=== PATIENT | male | born 1970 | race Caucasian/White ===

== ENCOUNTER 2020-11-12 14:12 | Outpatient (CLI) | payer OTHER, SELFPAY ==
--- NOTE | ~2020-11-12 | XR_ITS ---
XR abdomen/kub 1V 11/12/2020 14:38 Indication: Left flank pain for 3 days. History of stones. Procedure: KUB Comparison: 12/29/2017 Findings: There are bilateral renal stones. Bowel gas pattern is nonobstructive. No calcifications ar e identified overlying the expected course of the ureters or bladder. Lung bases unremarkable. Impression: 1: Bilateral nephrolithiasis measuring 3 mm or less. Reviewed, dictated and finalized at location A. Impression: 1: Bilateral nephrolithiasis measuring 3 mm or less.
== END 2020-11-12 14:13 | disposition home or self-care (01) ==
LOC: ANHIMG 14:18
PROVIDERS: PCP Nurse Practitioner Family; Visit Provider Nurse Practitioner Adult Health
DX: R10.9 Unspecified abdominal pain (principal); N20.0 Calculus of kidney
CPT/HCPCS: 74018

== ENCOUNTER 2022-08-17 08:14 | Outpatient (CLI) | payer OTHER, SELFPAY ==
--- NOTE | ~2022-08-17 | XR_ITS ---
Supine and upright views of the abdomen Clinical history: Left flank pain COMPARISON: 11/12/2020 Findings: Bowel gas pattern is nonspecific. No evidence for obstruction or free air. Small bilateral renal stones are present, measuring up to 3 mm in maximum diameter. Osseous structures are intact. Impression: Small bilateral renal stones, as detailed above. Reviewed, dictated and finalized at location . Impression: Small bilateral renal stones, as detailed above.
== END 2022-08-17 08:15 | disposition home or self-care (01) ==
PROVIDERS: PCP Nurse Practitioner Family; Visit Provider Nurse Practitioner Adult Health
DX: R10.9 Unspecified abdominal pain (principal); N20.0 Calculus of kidney
CPT/HCPCS: 74018

== ENCOUNTER → 2023-01-30 09:16 | Outpatient (CLI) | payer OTHER, SELFPAY ==
--- NOTE | ~2023-01-30 | US_ITS ---
US scrotum doppler INDICATION: Epididymitis TECHNIQUE: Testicular sonogram utilizing grayscale and color Doppler FINDINGS: The testes are normal in size and appearance. No focal lesions are seen. The right testes measures 3.9 x 2.7 x 4.1 cm centimeters, and the left testis measures 4.1 x 2.6 x 3.1 cm cm. There is normal vascular flow to both testes. The right and left epididymides appear normal. There is no varicocele or hydrocele. IMPRESSION: 1. NORMAL TESTICULAR ULTRASOUND. Reviewed, dictated and finalized at location B.
--- NOTE | ~2023-01-30 | CT_ITS ---
EXAMINATION: CT pelvis w con DATE: 01/30/2023 09:57 INDICATION: Left groin pain TECHNIQUE: High resolution computed tomography (CT) of the pelvis was performed with 100 mL Omnipaque -350 intravenous contrast. Additional sagittal and coronal reconstructions were performed. Automated exposure control and iterative reconstruction technique were employed. The dose-length product was 71 7.06 mGy-cm. COMPARISON: None FINDINGS: Bone alignment is normal. No fracture or suspected osteonecrosis. Mild lower lumbar spondylosis. Mild osteoarthritis at the bilateral hip and sacroiliac joints. No hip joint effusion. Small fat-containi ng indirect right inguinal hernia. There are few diverticula along the distal descending colon withou t adjacent comparison to suggest diverticular colitis. Remainder the visualized bowels including a re trocecal appendix are normal. Bladder the prostate and seminal vesicles are unremarkable. No free flu id in the pelvis. No pathologically enlarged pelvic or inguinal lymphadenopathy. IMPRESSION: 1. Mild lumbar spondylosis and mild osteoarthritis in the bilateral hip and sacroiliac joints. 2. Small fat-containing right inguinal hernia. Reviewed, dictated and finalized at location A. IMPRESSION: 1. Mild lumbar spondylosis and mild osteoarthritis in the bilateral hip and sac roiliac joints. 2. Small fat-containing right inguinal hernia.
[2023-01-30 09:48] LABS: Estimated Glomerular Filt Rate > 60
== END ==
PROVIDERS: PCP Nurse Practitioner Adult Health; Visit Provider Nurse Practitioner Adult Health
DX: R10.32 Left lower quadrant pain (principal); N45.1 Epididymitis; K40.90 Unilateral inguinal hernia, without obstruction or gangrene, not specified as recurrent; M47.896 Other spondylosis, lumbar region
CPT/HCPCS: 72193; 76870; 93976; Q9967

== ENCOUNTER 2025-02-08 07:53 | Outpatient (CLI) | payer OTHER, SELFPAY ==
--- NOTE | 2025-02-08 08:27 | ECG_ITS ---
Test Date: 2025-02-08 08:40:44 Measurements Intervals Raymond Rate: 77 P: 70 MD: 166 QRS: 60 QRSD: 110 T: 32 QT: 361 QTc: 409 Interpretive Statements SINUS RHYTHM NONSPECIFIC ST-T WAVE ABNORMALITY- INFERIOR LEADS BORDERLINE ECG No previous ECG available for comparison Electronically Signed On 02-08-2025 09:55:21 CDT by Pa Martin D.O.
[2025-02-08 09:37] LABS: INR 1.0; Partial Thromboplastin Time 25.9 Seconds (22.3-36.8); Prothrombin Time 13.6 Seconds (11.1-14.7)
== END 2025-02-08 07:54 | disposition home or self-care (01) ==
LOC: ANHLAB 07:54
PROVIDERS: PCP Nurse Practitioner Family; Visit Provider Urology
DX: R94.31 Abnormal electrocardiogram [ECG] [EKG] (principal); N20.0 Calculus of kidney
CPT/HCPCS: 36415; 85610; 85730; 87086; 93005

== ENCOUNTER 2025-02-14 01:18 | Day surgery (SDC) | payer OTHER, SELFPAY ==
--- NOTE | 2025-02-06 16:37 | P.HP_ITS ---
History of Present Illness History of Present Illness Consent: Risks, benefits, and alternatives have been discussed and questions answered. Patient agrees to proceed with procedure. Chief complaint: Rt renal stone Narrative: Dontrell Vaughn is a 54 year old male who is seen by Dr. Smith in our advanced placement practitioners for ED and hypogonadism. He is known to have bilateral stones, more so on the right. After consideration for some time he is now electing for right ESWL. He is aware the risk including, not limited to, adverse cardiopulmonary events, hematuria, perinephric hematoma and need for additional procedures to clear renal stones Review of Systems Cardiovascular: Cardiovascular: Denies chest pain, Denies lightheadedness, Denies palpitations and Denies dyspnea Respiratory: Respiratory: Denies dyspnea Gastrointestinal: Gastrointestinal: Denies diarrhea, Denies nausea and Denies vomiting Genitourinary: Genitourinary: Denies hematuria and Denies dysuria Endocrine: Endocrine: Denies palpitations Meds Home Medications and Allergies Allergies Allergy/AdvReac Type Severity Reaction Status Date / Time No Known Allergies Allergy Unverified 05/06/15 12:35 Exam Const: General: no acute distress Resp: Effort & Inspection: normal respiratory effort GI: Inspection: non-distended GI Palp: No abdominal tenderness and No Guarding due to palpation present (GI) Auscultation: normal bowel sounds Assessment and Plan Assessment and plan (1) Right renal stone: Code(s): N20.0 - Calculus of kidney Status: Acute Assessment and Plan: * Right ESWL
[2025-02-07 09:03] VITALS: BMI 30.6
--- NOTE | 2025-02-07 09:12 | PC.NURSE ---
[facility] has started construction of its new state of the art ER which will open Spring 2026. With this, we anticipate parking may be a challenge for some our surgical patients and families. Parking spaces are limited but are available for all Surgical, obstetrics, and ER patients sharing this lot. If you arrive and find you are having a hard time finding a parking space, please note that we understand the challenges, please drive around the hospital and park near Hospital Entrance 1. When you enter this entrance, you can ask a volunteer to direct or take you back to the surgical waiting area to check in. We appreciate everyone?s understanding of these expected challenges while we build for your future. Report to the Outpatient Waiting Room, entrance under the green pavilion located off [address], at time _0900_ on date _[id number]_. Planned Procedure Time: _1100_.? Time changes happen often and if your time is changed the preop area will call you the afternoon before. - You and your visitor will be asked to self-screen and do not enter if you have any COVID symptoms. Please call surgeon if you need to reschedule. - A mask is optional within the hospital at this time. Patients may have clear liquids (water, carbonated beverages, clear teas, apple juice) until 3 hours prior to surgery with a maximum of 20 ounces. - No food from midnight until time of surgery and no smoking, or chewing tobacco (or any form of nicotine). No chewing gum, candy or mints. Take only the following medications with a SIP of water on the morning of surgery: ___Amlodipine, Metoprolol____ DO NOT STOP ANY OF YOUR OTHER PRESCRIPTION MEDICATIONS PRIOR TO SURGERY EXCEPT THE FOLLOWING Hold all vitamins and supplements for 3 days per anesthesiologist. Medications to discontinue per physician Date to take last iaet___[phone]____ Please no make-up, nail nigerien, hairspray, perfume, deodorant, or body powder the day of surgery.? No jewelry (including any body piercings) or valuables the day of surgery, leave them at home.? Please take a shower or bath the night before, or the morning of, surgery with an antibacterial soap.? Wear comfortable, loose fitting clothing.? - Jewelry must be removed prior to entering the operating room.? Rings and piercings that are not removed may be cut off. - The hospital will not accept responsibility for valuables.? - Please leave all valuables, including medications, at home the day of surgery. If you are going home after surgery, a licensed tow truck driver must drive you home.? - NO public transportation without another adult if you receive anesthesia. - We recommend that an adult stay with you for 24 hours following discharge. - We also recommend that you do not drive, make important decision, drink alcoholic beverages, or take any drugs that were not prescribed by your health care provider for at least 24 hours after your discharge time. Follow any additional instructions given to you from your surgeon. Telephone instructions given to __Fantasmay__and asked if any additional questions and then verbalized understanding. Patient advised to call surgeon office or pre surgery nurse liaison [phone] if any additional questions.
[2025-02-14] VITALS (8 sets, daily range): BP systolic 86–146; BP diastolic 41–89; PULSE 67–89; RESP 12–20; TEMP 36.3–36.7; O2SAT 95–99; BMI 31.3
--- NOTE | ~2025-02-14 | XR_ITS ---
EXAMINATION: XR abdomen/kub 1V DATE: 02/14/2025 09:22 INDICATION: Pre Litho Right side stone TECHNIQUE: A supine view of the abdomen on 2 radiographs was obtained. COMPARISON: 08/17/2022 FINDINGS: Large amount of stool moderate amount of air in nondilated large bowel. Small amount of air in nondilated small bowel. Small bilateral renal stones. Stable 4 mm calcification in the right hemipelvis. IMPRESSION: 1. Small bilateral renal stones. 2. Nonspecific abdomen with a large amount of stool. Reviewed, dictated and finalized at location Q.
[2025-02-14] MEDS: LACTATED RINGERS 1,000 ML 30 ML IV CONT ×2 (09:53→11:52)
--- NOTE | 2025-02-14 09:55 | WPDANESEPPF ---
Anes - Initial Pre Proc Eval Procedure: Operation Date: 02/14/25 11:00 Proposed Procedures p Right Renal Extracorporeal Shock Wave Lithotripsy - Jose Jules MD Date/Time: 02/14/25 09:55 Surgeon: Jose Jules MD Pre Op Diagnosis: Rt renal stone Patient Data Age: 54 Gender: M Height: 1.75 m Weight: 96.2 kg Last Vital Signs Temp 36.7 C 02/14/25 09:50 Pulse 67 02/14/25 09:50 BP 146/89 H 02/14/25 09:50 Pulse Ox 99 02/14/25 09:50 O2 Del Method Room Air 02/14/25 09:50 Allergies Allergy/AdvReac Type Severity Reaction Status Date / Time ciprofloxacin (From Cipro) Allergy Intermediate Hives Verified 02/14/25 09:49 hydralazine Allergy Intermediate Hives Verified 02/14/25 09:49 Home Medications ?Medication ?Instructions ?Recorded ?Confirmed ?Type amlodipine 10 mg tablet 10 mg PO DAILY 02/07/25 02/14/25 History atorvastatin 20 mg tablet 20 mg PO HS 02/07/25 02/14/25 History metoprolol succinate 25 mg 25 mg PO DAILY 02/07/25 02/14/25 History tablet,extended release 24 hr multivitamin 1 tablet PO DAILY 02/07/25 02/14/25 History omeprazole 40 mg capsule,delayed 40 mg PO DAILY 02/07/25 02/14/25 History release valsartan 80 mg tablet 80 mg PO DAILY 02/07/25 02/14/25 History Patient hx anesthesia problems: none Family hx anesthesia problems: none Results Review: All pre-operative results and documents have been reviewed as part of the pre-operative evaluation. [facility] Past Medical History Medical History (Updated 02/13/25 @ 15:36 by William Do DO) PONV (postoperative nausea and vomiting) GERD (gastroesophageal reflux disease) CHRISTIAN (obstructive sleep apnea) Hyperlipidemia Hypertension Social History Social History Smoking status: Never smoker Living arrangements: with family Spiritual care concerns: No Anes - Eval Final PreProcedure Day of Procedure 02/14/25 09:55 Patient weight: obese Heart: regular rate and rhythm Lungs: clear to auscultation Airway: Mallampati scale class II Neurological: alert and oriented Last oral intake: >/= 8 hours ASA classification: III Emergent: no Anesthetic plan: proceed Anesthesia type and monitoring: general LMA and standard monitoring Results Review: All pre-operative results and documents have been reviewed as part of the pre-operative evaluation. Informed Consent: The patient's anesthetic plan and its attendant risks and benefits were discussed with the patient/family/POA. Questions were solicited and answers provided to the satisfaction of the patient/family/POA.
[2025-02-14] MEDS: SCOPOLAMINE 1 MG PATCH 1 PATCH TRANSDERM (10:08)
--- NOTE | 2025-02-14 10:50 | WPDHPUPDATE1 ---
History and Physical Update Update Date/Time: 02/14/25 10:50 History and Physical has been reviewed, including an updated exam of the patient. There are NO changes in the patient's condition. Risks, benefits, and alternatives have been discussed and questions answered. Patient agrees to proceed with procedure.
--- NOTE | 2025-02-14 11:15 | W.PM.PROC2 ---
Procedure Note - Detailed Date of Procedure 02/14/25 Pre-op Diagnosis Rt renal stones Post-op Diagnosis Same Procedure Performed Right ESWL Surgeon Jose Jules MD Anesthesia General Description of Procedure The patient was brought to the operative suite where he was placed in the supine position on the Dornier lithotripsy table. The focal point of the lithotripter was placed first at a 5mm stone in his right upper pole where 1250 shocks were delivered at a power setting of 1-4. The additional 1250 shock were split between 2 small stones in lower aspects of right kidney. calculus. A total of 2500 shocks were delivered at a power setting of 1-44. There appeared to be good fragmentation of the stones. The patient tolerated the procedure well and was taken to the recovery room in good condition. Drains Yes Packing No Pathology None sent Complications No immediate complications Condition Stable Disposition PACU
[2025-02-14] MEDS: oxyCODONE HCL (*CRX) 5 MG TAB IR PO (12:47)
== END 2025-02-14 13:25 | disposition home or self-care (01) ==
PROVIDERS: PCP Nurse Practitioner Family; Visit Provider Urology
PROC: (CPT 50590; principal; 2025-02-14 11:00)
DX: N20.0 Calculus of kidney (principal); E78.5 Hyperlipidemia, unspecified; I10 Essential (primary) hypertension; K21.9 Gastro-esophageal reflux disease without esophagitis; G47.33 Obstructive sleep apnea (adult) (pediatric); E66.9 Obesity, unspecified; Z68.31 Body mass index [BMI] 31.0-31.9, adult
CPT/HCPCS: 50590; 74018; J0690; A9270; J1100; J2250; J2405; J2704; J3010; J7120

== ENCOUNTER 2025-03-03 12:35 | Outpatient (CLI) | payer OTHER, SELFPAY ==
--- NOTE | ~2025-03-03 | XR_ITS ---
EXAMINATION: XR abdomen/kub 1V DATE: 03/03/2025 12:48 INDICATION: Calculus of kidney TECHNIQUE: A supine view of the abdomen on 2 radiographs was obtained. COMPARISON: 02/14/2025 FINDINGS: Large amount of stool in nondilated large bowel. Lung bases appear clear. There are a few probable small right renal stones, however, evaluation is limited due to overlying bowel gas and stool. Stable 3 mm calcification in the right hemipelvis. IMPRESSION: 1. Nonspecific abdomen with a large amount of stool. 2. Stable 3 mm calcification in the right hemipelvis. 3. There are a few probable small right renal stones, however, evaluation is limited due to overlying bowel gas and stool. If symptoms persist or worsen, consider a short-term follow-up study or additional imaging for further assessment. Reviewed, dictated and finalized at location Q. IMPRESSION: 1. Nonspecific abdomen with a large amount of stool. 2. Stable 3 mm calcification in the right hemipelvis. 3. There are a few probable small right renal stones, however, evaluation is li mited due to overlying bowel gas and stool. If symptoms persist or worsen, consider a short-term follow-up study or additio nal imaging for further assessment.
--- OUTSIDE RECORDS SUMMARY | 2025-03-03 13:52 | XMS_ITS | Encounter Summary ---
Author Organization [facility] Address [facility] [place] [address] Care Team Providers Care Roofing Subcontractor Name Role Phone Morelia Oh AMARILIS Primary Care Provider Clinton Palomino MD Unavailable [phone] Encounter Details Date Type Department Care Team (Late st Contact Info) Description 03/03/2025 Editorially Message Enc [facility] THREE [facility], [address] [place] [address] Cheryl Cabrera PA 3 [facility], [address] [place] [address] Follow from 02/24 appt Social History Tobacco Use Types Packs/Day Years Used Date Smoking Tobacco: Never Passive Smoke Exposure: Past Smokeless Tobacco: Never Comments:na Alcohol Use Standard Drinks/Week Comments Never 0 (1 standard drink = 0.6 oz pur e alcohol) PHQ-2 Answer Date Recorded Patient Health Questionnaire-2 Score 0 01/21/2025 Sex and Gender Information Value Date Recorded Sex Assigned at Male 12/19/2024 5:50 AM CDT Legal Sex Male 10:41 PM CDT Gender Identity Not on file Sexual Orientation Not on file 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 [place], [place] [id number] documented as of this encounter Visit Diagnoses Not on filedocumented in this encounter Additional Health Concerns Assessment Noted Time PHQ-9 Depression Total Score: 1 01/22/20 25 8:37 AM CDT documented as of this encounter Care Teams Roofing Subcontractor Relationship Specialty Start Date End Date Morelia Oh NP PCP - General 10/07/15 Clinton Palomino MD Three [facility] [address] [place], [place] [id number] Fabiola Mat Packer INTERVENTIONAL CARDIOLOGY 05/30/19 documented as of this encounter
--- OUTSIDE RECORDS SUMMARY | 2025-03-03 13:52 | XMS_ITS | Clinical Summary ---
Author Organization [facility] Care Team Providers Care Metal Milling Machine Operator Name Role Phone Unavailable Primary Care Provider Unavailabl e Social History Tobacco Use Types Packs/Day Years Used Date Smoking Tobacco: Never Assessed Sex and Gender Information Value Date Recorded Sex Assigned at Not on file Legal Sex Male 8:18 AM INTEGRATION ASSISTANT Gender Identity Not on file Sexual Orientation Not on file Plan of Treatment Health Maintenance Due Date Last Done Comments Hepatitis C Virus (HCV) Screening 1972 TdaP Immunization 1972 Hepatitis B Immunization (1 of 3 - 19+ 3-dose series) 1991 Cologuard 2017 Colonoscopy 2017 Colorectal Cancer Screening 2017 Immunochemical Fecal Occult Blood 2017 Pneumococcal Immunization (5 0+ years) (1 of 1 - PCV) 2022 Zoster Immunization (1 of 2) 2022 Influenza Immunization (#1) 2025 SARS-COV-2 Immunization ( - 2023-25 season) 2025 Respiratory Syncytial Virus (RSV) Immunization (Adult) (1 - 1-dose 75+ series) 2047 Human Papillomavirus (HPV) Immunization Aged Out No longer eligible b ased on patient's age to complete this topic Meningococcal Immunization (ACWY) Aged Out No longer eligible based on patient's age to complete this topic Rotavirus Immunization Aged Out No lo nger eligible based on patient's age to complete this topic
--- OUTSIDE RECORDS SUMMARY | 2025-03-03 13:52 | XMS_ITS | Encounter Summary ---
Author Organization [facility] Address [facility] [place] [address] Care Team Providers Care Experimental Outboard Motors Mechanic Name Role Phone Morelia Oh ANALYTICAL RESEARCH CHEMIST Primary Care Provider [phone] Clinton Palomino MD Unavailable [phone] Encounter Details Date Type Department Care Team (Late st Contact Info) Description 03/11/2020 ACS Gl[employer]alt Message Enc [facility] Family [facility] Medicine - [place] [address] [place] [address] Morelia Oh, ANALYTICAL RESEARCH CHEMIST [address] [place] [address] Medication Questions Social History Tobacco Use Types Packs/Day Years Used Date Smoking Tobacco: Never Smokeless Tobacco: Never Alcohol Use Standard Drinks/Week Comments No 0 (1 standard drink = 0.6 oz pur e alcohol) PHQ-2 Answer Date Recorded PHQ-2 Score - If the patient scores above 3, please move on to questions 3-9 0 03/04/2020 Sex and Gender Information Value Date Recorded Sex Assigned at Male 12/19/2024 5:50 AM CDT Legal Sex Male 10:41 PM CDT Gender Identity Not on file Sexual Orientation Not on file 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 No / Unsure 03/04/2020 10:29 AM CDT documented as of this encounter Progress Notes * Tiffani Hagen MA - 03/12/2020 7:35 AM CST Please advise GER BUSINESS INFORMATION documented in this encounter Plan of Treatment Upcoming Encounters Date Type Department Care Team (Late st Contact Info) Description 03/02/2026 9:30 AM CDT Office [facility] [address] [place], [place] [id number] Clinton [facility] [address] [place], [place] [id number] documented as of this encounter Visit Diagnoses Not on filedocumented in this encounter Additional Health Concerns Assessment Noted Time PHQ-9 Depression Total Score: 1 03/04/20 20 10:37 AM CDT documented as of this encounter Care Teams Experimental Outboard Motors Mechanic Relationship Specialty Start Date End Date Morelia Oh NP PCP - General 10/07/15 Clinton Palomino MD Three [facility]. [address] [place] [address] [place] Retail Aide INTERVENTIONAL CARDIOLOGY 05/30/19 documented as of this encounter
--- OUTSIDE RECORDS SUMMARY | 2025-03-03 13:52 | XMS_ITS | Encounter Summary ---
Author Organization [facility] Address [facility] [place] [address] Care Team Providers Care Sulfonator Operator Name Role Phone Morelia Oh AMARILIS Primary Care Provider [phone] Clinton Palomino MD Unavailable [phone] Encounter Details Date Type Department Care Team (Late st Contact Info) Description 03/03/2025 Trendlr Message Enc [facility] [address] [place] [address] [facility], [facility] Provider Social History Tobacco Use Types Packs/Day Years [...] 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 [address] [place], [place] [id number] documented as of this encounter Visit Diagnoses Not on filedocumented in this encounter Additional Health Concerns Assessment Noted Time PHQ-9 Depression Total Score: 1 01/22/20 25 8:37 AM CDT documented as of this encounter Care Teams Sulfonator Operator Relationship Specialty Start Date End Date Morelia Oh CHART CHANGER PCP - General 10/07/15 Clinton Palomino MD [facility]. [facility] [address] [place] [address] [place] Ward Clerk INTERVENTIONAL CARDIOLOGY 05/30/19 documented as of this encounter
--- OUTSIDE RECORDS SUMMARY | 2025-03-03 13:52 | XMS_ITS | Encounter Summary ---
Author Organization [facility] Address [facility] [place] [address] Care Team Providers Care Bus Greaser Name Role Phone Morelia Oh NP Primary Care Provider [phone] Clinton Palomino MD Unavailable [phone] Encounter Details Date Type Department Care Team (Latest Contact Info) Description 01/23/2025 Results Follow-Up [facility] Family and Sports Medicine - [place] [address] [place] [address] Morelia Oh ELECTROLYTIC ETCHER [address] [place] [address] CBC W/DIFF AUTOMATED, COMPREHENSIVE METABOLIC PANEL, LIPID PANEL, Additional followed-up results: 3 Social History Tobacco Use Types Packs/Day Years [...] 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 documented in this encounter Plan of Treatment Upcoming Encounters Date Type Department Care Team (Late st Contact Info) Description 03/02/2026 9:30 AM CDT Office Visit [facility] THREE [facility], [address] [place] [address] Clinton Palomino MD Three [facility]. [address] [place], [place] [id number] documented as of this encounter Visit Diagnoses Not on filedocumented in this encounter Additional Health Concerns Assessment Noted Time PHQ-9 Depression Total Score: 1 01/22/20 25 8:37 AM CDT documented as of this encounter Care Teams Bus Greaser Relationship Specialty Start Date End Date Morelia Oh NP PCP - General 10/07/15 Clinton Palomino MD Three [facility]. [address] [place], [place] [id number] [place] Newspaper Illustrator INTERVENTIONAL CARDIOLOGY 05/30/19 documented as of this encounter
--- OUTSIDE RECORDS SUMMARY | 2025-03-03 13:52 | XMS_ITS | Encounter Summary ---
Author Organization [facility] Address [facility] [place] [address] Care Team Providers Care Cottrell Operator Name Role Phone Morelia Oh SCREEN MAKING TECHNICIAN Primary Care Provider [phone] Clinton Palomino MD Unavailable [phone] Encounter Details Date Type Department Care Team (Latest Contact Info) Description 12/29/2024 MyChart Message Enc [facility] Family and Sports Medicine - [place] [address] [place] [address] Morelia Oh, SCREEN MAKING TECHNICIAN [address] [place] [address] Surgery recommendation Social History Tobacco Use Types Packs/Day Years Used Date Smoking Tobacco: Never Passive Smoke Exposure: Past Smokeless Tobacco: Never Comments:na Alcohol Use Standard Drinks/Week Comments No 0 (1 standard drink = 0.6 oz pur e alcohol) PHQ-2 Answer Date Recorded Patient Health Questionnaire-2 Score 0 03/26/2024 Sex and Gender Information Value Date Recorded Sex Assigned at Male 12/19/2024 5:50 AM CDT Legal Sex Male 10:41 PM CDT Gender Identity Not on file Sexual Orientation Not on file 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 [address] [place], [place] [address] documented as of this encounter Visit Diagnoses Not on filedocumented in this encounter Additional Health Concerns Assessment Noted Time PHQ-9 Depression Total Score: 2 03/26/20 24 11:47 AM COSMETICS PRESSER documented as of this encounter Care Teams Cottrell Operator Relationship Specialty Start Date End Date Morelia Oh NP PCP - General 10/07/15 Clinton Palomino MD Three [facility]. [address] [place], [place] [address] [place] Ticket Attendant INTERVENTIONAL CARDIOLOGY 05/30/19 documented as of this encounter
--- OUTSIDE RECORDS SUMMARY | 2025-03-03 13:52 | XMS_ITS | Encounter Summary ---
Author Organization [facility] Address [facility] [place] [address] Care Team Providers Care Navigation Teacher Name Role Phone Morelia Oh VEGETABLE HARVEST WORKER Primary Care Provider [phone] Clinton Palomino MD Unavailable [phone] Encounter Details Date Type Department Care Team (Late Contact Info) Description 01/15/2025 MyChart Message Enc [facility] Medical [facility] Family and Sports Medicine - [place] [address] [place] [address] Morelia Oh, VEGETABLE HARVEST WORKER [address] [place] [address] Bloodwork Social History Tobacco Use Types Packs/Day Years [...] 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 [address] [place], [place] [id number] documented as of this encounter Visit Diagnoses Not on filedocumented in this encounter Additional Health Concerns Assessment Noted Time PHQ-9 Depression Total Score: 2 03/26/20 24 11:47 AM CONDENSER WINDER documented as of this encounter Care Teams Navigation Teacher Relationship Specialty Start Date End Date Morelia Oh NP PCP - General 10/07/15 Clinton Palomino MD Three [facility] [place] [facility]. [address] [place], [place] [address] [place] Chlorination Operator INTERVENTIONAL CARDIOLOGY 05/30/19 documented as of this encounter
--- OUTSIDE RECORDS SUMMARY | 2025-03-03 13:52 | XMS_ITS | Encounter Summary ---
Author Organization [facility] Address [facility] [place] [address] Care Team Providers Care Clinical Sciences Professor Name Role Phone Morelia Oh UX INFORMATION ARCHITECT Primary Care Provider [phone] Clinton Palomino MD Unavailable [phone] Encounter Details Date Type Department Care Team (Late Contact Info) Description 09/08/2020 MyChart Message Enc [facility] Medical [facility] Family and Sports Medicine - [place] [address] [place] [address] Morelia Oh, UX INFORMATION ARCHITECT [address] [place] [address] RE: Follow Up/Update Social History Tobacco Use Types Packs/Day Years [...] 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 No / Unsure 08/17/2020 7:49 AM CDT documented as of this encounter Plan of Treatment Upcoming Encounters Date Type Department Care Team (Late st Contact Info) Description 03/02/2026 9:30 AM CDT Office Visit [facility] THREE [facility], [address] [place], [place] [phone] Clinton Palomino MD Three [facility]. [address] [place], [place] [id number] documented as of this encounter Visit Diagnoses Not on filedocumented in this encounter Additional Health Concerns Assessment Noted Time PHQ-9 Depression Total Score: 1 03/04/20 20 10:37 AM CDT documented as of this encounter Care Teams Clinical Sciences Professor Relationship Specialty Start Date End Date Morelia Oh NP PCP - General 10/07/15 Clinton Palomino MD Three [facility]. [address] [place] [address] [place] Marble Machine Operator INTERVENTIONAL CARDIOLOGY 05/30/19 documented as of this encounter
--- OUTSIDE RECORDS SUMMARY | 2025-03-03 13:52 | XMS_ITS | Encounter Summary ---
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 * Tiffani Hagen MA - 12/10/2020 7:34 AM CDT Please advise documented in this encounter Plan of Treatment Upcoming Encounters Date Type Department Care Team (Late st Contact Info) Description 03/02/2026 9:30 AM CDT [facility], [address] [place] [address] Clinton [facility]omino MD Three [facility]. [address] [place], [place] [address] documented as of this encounter Visit Diagnoses Not on filedocumented in this encounter Additional Health Concerns Assessment Noted Time PHQ-9 Depression Total Score: 1 03/04/20 20 10:37 AM CDT documented as of this encounter Care Teams Environmental Services Technician Relationship Specialty Start Date End Date Morelia Oh NP PCP - General 10/07/15 [facility] [address] [address] [place], [place] [address] [place] Expeditionary Fighting Vehicle Crewman INTERVENTIONAL CARDIOLOGY 05/30/19 documented as of this encounter
--- OUTSIDE RECORDS SUMMARY | 2025-03-03 13:52 | XMS_ITS | Encounter Summary ---
Author Organization [facility] Address [address] [place] [address] Care Team Providers Care Supervisor Speech Name Role Phone Christiano Dickson MD Unavailable [phone] Christiano Dickson MD Primary Care Provider [phone] Encounter Details Date Type Department Care Team (Late st Contact Info) Description 09/18/2019 Lab Requisition [facility] Care DermPath Lab [address] [facility], [place] [address] Ruperto Rivas MD [address] [place] [address] Social History Tobacco Use Types Packs/Day Years Used Date Smoking Tobacco: Never Smokeless Tobacco: Never Alcohol Use Standard Drinks/Week Comments No 0 (1 standard drink = 0.6 oz pur e alcohol) Overall Financial Resource Strain (CARDIA) Answe r Date Recorded Difficulty of Paying Living Expenses Not hard at all 12/27/2018 Hunger Vital Sign Answer Date Recorded Worried About Running Out of Food in the Last Ye ar Never true 12/27/2018 Ran Out of Food in the Last Year Never true 12/27/2018 PRAPARE - Transportation Answer Date Re corded Lack of Transportation (Medical) No 12/27/2018 Lack of Transportation (Non-Medical) No 12/27/2018 Education Answer Date Recorded What is the highest level of school you have completed or the highest degree you have received? Bachelor's degree (e.g., BA, AB, BS) 12/27/2018 Sex and Gender Information Value Date Recorded Sex Assigned at Male 04/03/2021 7:43 AM DIRECTOR PATIENT Legal Sex Male 9:15 AM DIRECTOR PATIENT Gender Identity Male 04/03/2021 7:43 AM DIRECTOR PATIENT Sexual Orientation Straight 04/03/2021 7: 43 AM DIRECTOR PATIENT documented as of this encounter Plan of Treatment Not on file documented as of this encounter Procedures Procedure Name Priority Date/Time Associated Diagnosis Comments DERMATOPATHOLOGY Routine 09/17/2019 12:0 0 AM CDT documented in this encounter Results * DERMATOPATHOLOGY (09/17/2019 12:00 AM CDT) Case Report Dermatopathology Report Case: [id number] Authorizing Provider: Ruperto Rivas MD Collected: 09/17/2019 12:00 AM Ordering Location: [facility] Received: 09/18/2019 02:48 PM Pathologist: Angela Roberto MD Specimen: Skin, right evangelical 0 1:03 PM CDT DERMATOPATHOLOGY LABORATORY Final Diagnosis Specimen A. SKIN, right evangelical: BENIGN VERRUCOUS KERATOSIS (L82.1) 0 1:03 PM CDT DERMATOPATHOLOGY LABORATORY at 1303 CDT Clinical History Nevus. Path # [id number]. 0 1:03 PM CDT DERMATOPATHOLOGY LABORATORY Gross Description Specimen A: Received is one formalin filled container labeled with the patient's name and designated right evangelical. The specimen consists of a shave biopsy measuring [id number]. Jar 0. 0 1:03 PM CDT DERMATOPATHOLOGY LABORATORY Microscopic Description Specimen A. SKIN, right evangelical: Sections show hyperkeratosis, papillomatosis, hypergranulosis, and acanthosis. These histological findings can be seen in a verruca vulgaris or a seborrheic keratosis. 0 1:03 PM CDT DERMATOPATHOLOGY LABORATORY Disclaimer An external and internal positive and negative controls are appropriate for the histochemical, immunohistochemical and immunofluorescence stain(s) in this case (if any), except where stated explicitly. The performance characteristics of the stain(s) cited in this report were developed and its performance characteristic determined by the Dermatopathology Laboratory at [facility], directed by Dr. Tian Dial. These tests need not be, and therefore are not, approved by the [place] Food and Drug Administration. The tests are used for clinical purposes. Billing Codes Specimen Charges Stain Charges 20906 1 0 1:03 PM CDT DERMATOPATHOLOGY LABORATORY Embedded Images 0 1:03 PM CDT DERMATOPATHOLOGY LABORATORY Pathology/Cytolog y TISSUE SPECIMEN FROM SKIN / Unknown 09/17/2019 09/18/2019 2:48 PM CDT us Ruperto Rivas MD LAB - PATHOLOGY/CYTOLOGY ORDER ELY Final Result DERMATOPATHOLOGY LABORATORY [facility] - Department of Dermatology [address] [place] [address], 5th Floor Lab [address] [phone] documented in this encounter Visit Diagnoses Not on filedocumented in this encounter Care Teams Supervisor Speech Relationship Specialty Start Date End Date Christiano Dickson MD [address] [place] [address] PCP - General 09/18/19 Christiano Dickson MD Family Medicine 04/01/16 documented as of this encounter
--- OUTSIDE RECORDS SUMMARY | 2025-03-03 13:52 | XMS_ITS | Encounter Summary ---
Author Organization [facility] Address [address] [place] [address] Care Team Providers Care Body Cleaner Name Role Phone Adriano Morelia Cabello NP Primary Care Provider [phone] Clinton Palomino MD Unavailable [phone] Encounter Details Date Type Department Care Team (Late st Contact Info) Description 08/10/2020 [place] Message Enc [facility] THREE [facility], [address] [place] [address] Clinton Palomino MD Three [facility]. 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 No / Unsure 07/29/2020 1:58 PM CDT documented as of this encounter Plan of Treatment Upcoming Encounters Date Type Department Care Team (Late st Contact Info) Description 03/02/2026 9:30 AM CDT Office Visit [facility] THREE [facility], [address] [place], [place] [phone] Clinton Palomino MD Three [facility]. [address] [place], [place] [id number] documented as of this encounter Visit Diagnoses Not on filedocumented in this encounter Additional Health Concerns Assessment Noted Time PHQ-9 Depression Total Score: 1 03/04/20 20 10:37 AM CDT documented as of this encounter Care Teams Body Cleaner Relationship Specialty Start Date End Date Morelia Oh NP PCP - General 10/07/15 Clinton Palomino MD Three [facility]. [address] [place], [place] [address] [place] Senior Telecommunications Specialist INTERVENTIONAL CARDIOLOGY 05/30/19 documented as of this encounter
--- OUTSIDE RECORDS SUMMARY | 2025-03-03 13:52 | XMS_ITS | Clinical Summary ---
Author Organization [facility] Address [address] [facility] [place] [address] Care Team Providers Care Building Stonecutter Name Role Phone Christiano Dickson MD Unavailable [phone] Christiano Dickson MD Primary Care Provider [phone] Source Comments [facility] and Associated Physician Practices is amultiple site organization consisting of ambulatory clinics and hospital sitesin [place], [place], [place] and [place]. This disclosure is being madepursuant to the Care Everywhere program and may not contain all information available regarding this patient. Last updated 18.[facility] Allergies Active Allergy Reactions Criticality Noted Date Comments Ciprofloxacin Rash Medium 11/02/2020 Stiff neck Hydralazine Rash Medium 08/11/2020 Medications * Be aware that medications may not be up to date on this document. Alwaysverify current medications with the patient. melatonin 10 MG capsule Take 1 (one) capsule by mouth at bedtime Active lisinopril (PRINIVIL; ZESTRIL) 20 MG tablet Take 1 (one) tablet by mouth once daily 3 12/11/2018 Active Triamcinolone Acetonide (NASACORT ALLERGY 24HR NA) Active omeprazole (PRILOSEC) 40 MG capsule Take 1 (one) capsule by mouth once daily 08/31/2020 Active cetirizine (ZYRTEC) 10 MG tablet Take 10 mg by mouth once daily Active amLODIPine (Norvasc) 10 MG tablet 05/10/2023 Active atorvastatin (Lipitor) 20 MG tablet 04/17/2023 Active metoprolol succinate XL 24hr (Toprol XL) 25 MG tablet Take 1 (one) tablet by mouth once daily 10/17/2022 Active Active Problems Problem Noted Date Diagnosed Date Hypertension 12/27/2018 Nephrolithiasis 12/27/2018 Family history of coronary artery disease 2016 Mixed hyperlipidemia 11/28/2016 Obesity (BMI 30.0-34.9) 11/28/2016 Heartburn 07/22/2015 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 Noted that the patients symptoms dramatically improved on pamine forte. No randombx done. No records of EGD by [facility] per [facility] records from [id number]. Labs 05/16/2013: normal cmp except for gluocse 108, alt 42 Albumin 4.7 Creat 0.82 tsh normal Mg 2.1 hgb 18, wbc 10, plt 262 Maylin negative Heavy metals pending-additional sample needed, pat redraw requested, iga 152 Vit b12 520 sjogrens neg TTg IGA neg Zn 67 (normal but low end of normal (60-130 range) Overview: Overview: Overview: Colon 12/11/2011: for abdomianl pain, altered bm by megan bianca Colonoscopy normal to TI, distal 5 cm TI normal. Noted that the patients symptoms dramatically improved on pamine forte. No randombx done. No records of EGD by [facility] per medica records from [id number]. Labs 05/16/2013: normal cmp except for gluocse 108, alt 42 Albumin 4.7 Creat 0.82 tsh normal Mg 2.1 hgb 18, wbc 10, plt 262 Maylin negative Heavy metals pending-additional sample needed, pat redraw requested, iga 152 Vit b12 520 sjogrens neg TTg IGA neg Zn 67 (normal but low end of normal (60-130 range) Prostatic hyperplasia 12/30/2011 Immunizations Immunization Administration Dates Next Due FanMiles primary monoval ent 12+ yr 0.3mL Purple cap 01/14/2022,07/16/2020,06/24/2020 INFLUENZA VACCINE 01/14/2022 INFLUENZA VACCINE, CELL CULT URE, QUADR. (FLUCELVAX QUADRIVALENT; 6MO+) (CCIIV4) 02/02/2020 INFLUENZA VACCINE, QUADR. (F LUZONE; FLULAVAL; FLUARIX; AFLURIA QUADRIVALENT; 6MO+), 0.5 ML (IIV4) 01/18/2021,03/06/2018,03/19/2015 TDAP (7yrs+) 04/24/2019 Zoster Hzv Vacc Recombinant Inj Im 08/29/2022, Family History Medical History Relation Name Comments Hypertension Father Hypertension Mother Asthma Neg Hx Autoimmune Disease Neg Hx Bipolar Disorder Neg Hx Cancer - Breast Neg Hx Cancer - Colon Neg Hx Cancer - Other Neg Hx Cancer - Ovarian Neg Hx Cancer - Pancreatic Neg Hx Cancer - Prostate Neg Hx Depression Neg Hx Eczema Neg Hx Migraine Neg Hx Osteoporosis Neg Hx Seizures Neg Hx Sudd. <30 Neg Hx Thyroid Disease Neg Hx Ulcerative Colitis Neg Hx Relation Name Status Comments Father Alive Mother Alive Social History Tobacco Use Types Packs/Day Years Used Date Smoking Tobacco: Never Smokeless Tobacco: Never Tobacco Cessation:Counseling Given: Not Answered Alcohol Use Standard Drinks/Week Comments No 0 [...] Sex Assigned at Male 04/03/2021 7:43 AM BIKE DESIGNER Legal Sex Male 9:15 AM BIKE DESIGNER Gender Identity Male 04/03/2021 7:43 AM BIKE DESIGNER Sexual Orientation Straight 04/03/2021 7: 43 AM BIKE DESIGNER Last Filed Vital Signs Vital Sign Reading Time Taken Comments Blood Pressure 153/99 06/21/2023 2:45 PM BIKE DESIGNER Pulse 79 06/21/2023 2:45 PM BIKE DESIGNER Temperature 36.7 C (98.1 F) 04/04/2021 10:31 AM BIKE DESIGNER Respiratory Rate 20 04/04/2021 10:3 1 AM BIKE DESIGNER Oxygen Saturation 97% 06/21/2023 2:45 PM BIKE DESIGNER Inhaled Oxygen Concentration - - Weight 113.4 kg (249 lb 14.4 oz) 06/21/2023 2:45 PM BIKE DESIGNER Height 175.3 cm (5' 9) 06/21/2023 2:45 PM BIKE DESIGNER Body Mass Index 36.9 06/21/2023 2:45 PM BIKE DESIGNER Plan of Treatment Health Maintenance Due Date Last Done Comments COLOGUARD (AGES 45-75) - COLON CA SCREENING 1972 COLON MONITORING 1972 COLONOSCOPY - COLON CA SCREENING 1972 CT COLONOGRAPHY - COLON CA SCREENING 1972 Colorectal Cancer Screening 1972 FIT - COLON CA SCREENING 1972 FLEX SIG - COLON CA SCREENING 1972 HIV SCREENING 1987 HEPATITIS C SCREENING 06/12/1990 HEPATITIS B VACCINE (1 of 3 - 19+ 3-dose series) 1991 PNEUMOCOCCAL VACCINE 50+ (1 of 1 - PCV) 2022 SCREENING FOR DIABETES 06/21/2023 DEPRESSION SCREENING 05/08/2024 COVID-19 VACCINE ( season) 2025 01/14/2022, 01/14/2022, 03/02/2021, Additional history exists INFLUENZA VACCINE (#1) 2025 , 01/18/2021, 02/02/2020, Additional history exists DTAP/TDAP/TD VACCINES (2 - Td or Tdap) 04/24/2029 04/24/2019 ZOSTER VACCINE Completed 08/29/2022, 06/20/2022 HIB VACCINE Aged Out No longer eligi ble based on patient's age to complete this topic HPV VACCINE Aged Out No longer eligi ble based on patient's age to complete this topic MENINGOCOCCAL (Group B) VACCINE SHARED DECISION-MAKING Aged Out No longer eligible based on patient's age to complete this topic MENINGOCOCCAL GROUPS A/C/Y/W VACCINE Aged Out No longer eligible based on patient's age to complete this topic Insurance [facility] Member Subscriber Plan / Payer ( fective 2019-Present) Name:Dontrell Vaughn Relation to Subscriber:Self Name:Dontrell Vaughn Payer ID:[id number] (NA) Type:HMO Address: [address] [place] [id number] Care Teams Building Stonecutter Relationship Specialty Start Date End Date Christiano Dickson MD [address] [facility] [place] [address] PCP - General 09/18/19 Christiano Dickson MD Family Medicine 04/01/16
--- OUTSIDE RECORDS SUMMARY | 2025-03-03 13:52 | XMS_ITS | Encounter Summary ---
Author Organization [facility] Address [address] [place] [address] Care Team Providers Care Station Air Traffic Control Specialist Name Role Phone Christiano Dickson MD Unavailable [phone] Christiano Dickson MD Primary Care Provider [phone] Encounter Details Date Type Department Care Team (Late st Contact Info) Description 06/30/2021 Lab Requisition [facility] [address], [place] [id number] Ruperto Rivas MD [address] [place] [address] Social History Tobacco Use Types Packs/Day [...] Sex Assigned at Male 04/03/2021 7:43 AM ROLLER PRINTING SUPERVISOR Legal Sex Male 9:15 AM ROLLER PRINTING SUPERVISOR Gender Identity Male 04/03/2021 7:43 AM ROLLER PRINTING SUPERVISOR Sexual Orientation Straight 04/03/2021 7: 43 AM ROLLER PRINTING SUPERVISOR documented as of this encounter Plan of Treatment Not on file documented as of this encounter Procedures Procedure Name Priority Date/Time Associated Diagnosis Comments DERMATOPATHOLOGY Routine 06/30/2021 12:0 0 AM ROLLER PRINTING SUPERVISOR documented in this encounter Results * DERMATOPATHOLOGY (06/30/2021 12:00 AM ROLLER PRINTING SUPERVISOR) Case Report Dermatopathology Report Case: [id number] Authorizing Provider: Ruperto Rivas MD Collected: 06/30/2021 12:00 AM Ordering Location: [facility] DermPath Lab Received: 06/30/2021 04:21 PM Pathologist: Angela Roberto MD Specimen: Skin, left FA 2 1:19 PM [facility] DERMATOPATHOLOGY LABORATORY Final Diagnosis Specimen A. SKIN, left FA: DERMATOFIBROMA (D23.9) 2 1:19 PM [facility] DERMATOPATHOLOGY LABORATORY at [address] ROLLER PRINTING SUPERVISOR Clinical History Irrit nevus vs DF. Path # [id number]. 2 1:19 PM [facility] DERMATOPATHOLOGY LABORATORY Gross Description Specimen A: Received is one formalin filled container labeled with the patient's name and designated left FA. The specimen consists of a shave biopsy measuring [id number]. Jar 0. 2 1:19 PM [facility] DERMATOPATHOLOGY LABORATORY Microscopic Description Specimen A. SKIN, left FA: There is epidermal hyperplasia. Within the dermis, there are fibrohistiocytic cells in haphazard array among coarse collagen bundles. 2 1:19 PM [facility] DERMATOPATHOLOGY LABORATORY Disclaimer An external and internal positive and negative controls are appropriate for the histochemical, immunohistochemical and immunofluorescence stain(s) in this case (if any), except where stated explicitly. The performance characteristics of the stain(s) cited in this report were developed and its performance characteristic determined by the Dermatopathology Laboratory at [facility], directed by Dr. Tian Dial. These tests need not be, and therefore are not, approved by the [place] Food and Drug Administration. The tests are used for clinical purposes. Billing Codes Specimen Charges Stain Charges 91274 1 2 1:19 PM ROLLER PRINTING SUPERVISOR DERMATOPATHOLOGY LABORATORY Embedded Images 2 1:19 PM ROLLER PRINTING SUPERVISOR DERMATOPATHOLOGY LABORATORY Pathology/Cytolog y TISSUE SPECIMEN FROM SKIN / Unknown 06/30/2021 06/30/2021 4:21 PM ROLLER PRINTING SUPERVISOR Ruperto Rivas MD LAB - PATHOLOGY/CYTOLOGY ORDER ELY Final Result DERMATOPATHOLOGY LABORATORY [facility] - Department of Dermatology [facility] Medicine [address] [place] [address], [address] [phone] documented in this encounter Visit Diagnoses Not on filedocumented in this encounter Care Teams Station Air Traffic Control Specialist Relationship Specialty Start Date End Date Christiano Dickson MD [address] [place] [address] PCP - General 09/18/19 Christiano Dickson MD Family Medicine 04/01/16 documented as of this encounter
--- OUTSIDE RECORDS SUMMARY | 2025-03-03 13:52 | XMS_ITS | Encounter Summary ---
Author Organization [facility] Address [facility] [place] [address] Care Team Providers Care Mattress Maker Name Role Phone Morelia Oh MOTOR VEHICLE ASSEMBLER Primary Care Provider [phone] Clinton Palomino MD Unavailable [phone] Encounter Details Date Type Department Care Team (Late Contact Info) Description 08/17/2020 MyChart Message Enc [facility] Medical Group Family and Sports Medicine - [place] [address] [place] [address] Morelia Oh, MOTOR VEHICLE ASSEMBLER [address] [place] [address] RE: Medication Questions Social History Tobacco Use Types [...] 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, [address] [place] [address] Clinton Palomino MD Three [facility]. [address] [place] [address] documented as of this encounter Visit Diagnoses Not on filedocumented in this encounter Additional Health Concerns Assessment Noted Time PHQ-9 Depression Total Score: 1 03/04/20 20 10:37 AM CDT documented as of this encounter Care Teams Mattress Maker Relationship Specialty Start Date End Date Morelia Oh NP PCP - General 10/07/15 Clinton Palomino MD Three [facility]. [address] [place] [address] [place] Insurance Premium Auditor INTERVENTIONAL CARDIOLOGY 05/30/19 documented as of this encounter
--- OUTSIDE RECORDS SUMMARY | 2025-03-03 13:53 | XMS_ITS | Encounter Summary ---
Author Organization [facility] Address Pending sale to [facility] [place] [address] Care Team Providers Care Possum Trapper Name Role Phone Morelia Oh DEPUTY CORONER INVESTIGATOR Primary Care Provider [phone] Clinton Palomino MD Unavailable [phone] Encounter Details Date Type Department Care Team (Late Contact Info) Description 10/30/2024 MyChart Message Enc [facility] Medical Group Family and Sports Medicine - [place] [address] [place] [address] Morelia Oh, DEPUTY CORONER INVESTIGATOR [address] [place] [address] Possible debra casarez Social History Tobacco Use Types Packs/Day Years [...] 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, [address] [address] Clinton Palomino MD Three [facility]. [address] [place] [address] documented as of this encounter Visit Diagnoses Not on filedocumented in this encounter Additional Health Concerns Assessment Noted Time PHQ-9 Depression Total Score: 2 03/26/20 24 11:47 AM FLOOD CONTROL ENGINEER documented as of this encounter Care Teams Possum Trapper Relationship Specialty Start Date End Date Morelia Oh NP PCP - General 10/07/15 Clinton Palomino MD Three [facility]. [address] [place] [address] [place] Letterpress Setter INTERVENTIONAL CARDIOLOGY 05/30/19 documented as of this encounter
--- OUTSIDE RECORDS SUMMARY | 2025-03-03 13:53 | XMS_ITS | Encounter Summary ---
Author Organization [facility] Address [address] [place] [address] Care Team Providers Care Food Mixer Repairer Name Role Phone Oh Morelia Cabello NP Primary Care Provider [phone] Clinton Palomino MD Unavailable [phone] Encounter Details Date Type Department Care Team (Late st Contact Info) Description 02/16/2022 Abstract [facility], [address] [place] [address] Miranda Mccurdy MA Social History Tobacco Use Types Packs/Day Years Used Date Smoking Tobacco: Never Smokeless Tobacco: Never Comments:na Alcohol Use Standard Drinks/Week Comments No 0 (1 standard drink = 0.6 oz pur e alcohol) PHQ-2 Answer Date Recorded PHQ-2 Score - If the patient scores above 3, please move on to questions 3-9 0 02/17/2022 Sex and Gender Information Value Date Recorded Sex Assigned at Male 12/19/2024 5:50 AM CDT Legal Sex Male 10:41 PM CDT Gender Identity Not on file Sexual Orientation Not on file 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 No / Unsure 02/17/2022 2:28 PM CDT documented as of this encounter Plan of Treatment Upcoming Encounters Date Type Department Care Team (Late st Contact Info) Description 03/02/2026 9:30 AM CDT Office Visit [facility] THREE [facility], [address] [place] [address] Clinton Palomino MD Three [facility]. [facility] [address] [place], [place] [address] documented as of this encounter Procedures Procedure Name Priority Date/Time Associated Diagnosis Comments CORTISOL Routine 03/08/2022 ALDOSTERONE/RENIN ACTIVITY Routine 03/08/2022 CATECHOLAMINES URINE 24 HR Routine 03/08/2022 METANEPHRINES URINE 24 HR Routine 03/08/2022 BASIC METABOLIC PANEL Routine 02/15/2022 LIPID PANEL Routine 02/15/2022 THYROID STIM HORMONE TSH Routine 02/15/2022 documented in this encounter Results * ALDOSTERONE/RENIN ACTIVITY (03/08/2022) ALDOSTERONE S/P/B 2 PLASMA RENIN ACTIVITY 11.41 0.25 - 5.82 03/08/2022 us Default History Genericprovider LABORATORY Final Result * METANEPHRINES URINE 24 HR (03/08/2022) NORMETANEPHRINE (U) 24 HRS 508 88 - 649 METANEPHRINES TOTAL (U) 602 182 - 739 METANEPHRINE (U) 24 HR 94 58 - 203 URINE SPECIMEN / Unknown 03/08/2022 us Default History Genericprovider URINE ORDERABLES Final Result * CATECHOLAMINES URINE 24 HR (03/08/2022) EPINEPHRINE (U) <2.0 NOREPINEPHRINE (U) 103 15 - 100 TOTAL CATECHOLAMINES S/P/B 103 26 - 121 DOPAMINE URINE/24H 273 52 - 480 URINE SPECIMEN / Unknown 03/08/2022 us Default History Genericprovider URINE ORDERABLES Final Result * CORTISOL (03/08/2022) Pathologist [facility] CORTISOL 12.4 4.0 - 22.0 03/08/2022 us Default History Genericprovider LABORATORY Final Result * THYROID STIM HORMONE, TSH (02/15/2022) Pathologist [facility] TSH 2.30 02/15/2022 us Default History Genericprovider LABORATORY Final Result * (ABNORMAL) BASIC METABOLIC PANEL (02/15/2022) Pathologist [facility] SODIUM S/P/B 141 POTASSIUM S/P/B 4.3 CO2 29 CHLORIDE S/P/B 104 GLUCOSE 75 mg/dL CALCIUM S/P/B 9.8 BUN 9 CREATININE S/P/B 0.86 0.7 - 1.3 EGFR NON-AFR. AMER. 106(A) <=90 02/15/2022 us Default History Genericprovider LABORATORY Final Result * LIPID PANEL (02/15/2022) Pathologist [facility] CHOLESTEROL 189 HDL 43 TRIGLYCERIDES 204 NON HDL CHOLESTEROL 146 LDL (CALCULATED) 114 02/15/2022 us Default History Genericprovider LABORATORY Final Result documented in this encounter Visit Diagnoses Not on filedocumented in this encounter Additional Health Concerns Assessment Noted Time PHQ-9 Depression Total Score: 2 08/27/19 22 8:21 AM CDT documented as of this encounter Care Teams Food Mixer Repairer Relationship Specialty Start Date End Date Morelia Oh NP PCP - General 10/07/15 Clinton Palomino MD Three [facility]. [facility] [address] [place] [address] [place] Jai Alai Player INTERVENTIONAL CARDIOLOGY 05/30/19 documented as of this encounter
--- OUTSIDE RECORDS SUMMARY | 2025-03-03 13:53 | XMS_ITS | Encounter Summary ---
Author Organization [facility] Address [facility] [place] [address] Care Team Providers Care Scientific Programmer Analyst Name Role Phone Adriano Morelia Cabello NP Primary Care Provider [phone] Clinton Palomino MD Unavailable [phone] Encounter Details Date Type Department Care Team (Late Contact Info) Description 08/17/2022 MyChart Message Enc [facility] Medical Group Diabetes and Endocrinology - [place] [address] [facility] [place] [address] [place] [address] [place] [address] [address] Testosterone Gel Social History Tobacco Use Types Packs/Day Years Used Date Smoking Tobacco: Never Smokeless Tobacco: Never Comments:na Alcohol Use Standard Drinks/Week Comments No 0 (1 standard drink = 0.6 oz pur e alcohol) PHQ-2 Answer Date Recorded Patient Health Questionnaire-2 Score 0 06/09/2022 Sex and Gender Information Value Date Recorded Sex Assigned at Male 12/19/2024 5:50 AM CDT Legal Sex Male 10:41 PM CDT Gender Identity Not on file Sexual Orientation Not on file 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 [address] [place], [place] [address] documented as of this encounter Visit Diagnoses Not on filedocumented in this encounter Additional Health Concerns Assessment Noted Time PHQ-9 Depression Total Score: 2 02/18/20 22 3:23 PM CDT documented as of this encounter Care Teams Scientific Programmer Analyst Relationship Specialty Start Date End Date Morelia Oh NP PCP - General 10/07/15 Clinton Palomino MD Three [facility]. [address] [place] [address] [place] Hook And Eye Attacher INTERVENTIONAL CARDIOLOGY 05/30/19 documented as of this encounter
--- OUTSIDE RECORDS SUMMARY | 2025-03-03 13:53 | XMS_ITS | Encounter Summary ---
Author Organization [facility] Address [facility] [place] [address] Care Team Providers Care Waiter/Waitress Tavern Name Role Phone Morelia Oh ROCKET ENGINE TESTER Primary Care Provider [phone] Clinton Palomino MD Unavailable [phone] Encounter Details Date Type Department Care Team (Late st Contact Info) Description 09/12/2021 MyChart Message Enc [facility] Medical Group Family and Sports Medicine - [place] [address] [place] [address] Morelia Oh, ROCKET ENGINE TESTER [address] [place] [address] Stomach medicine Social History Tobacco Use Types Packs/Day Years Used Date Smoking Tobacco: Never Smokeless Tobacco: Never Comments:na Alcohol Use Standard Drinks/Week Comments No 0 (1 standard drink = 0.6 oz pur e alcohol) PHQ-2 Answer Date Recorded PHQ-2 Score - If the patient scores above 3, please move on to questions 3-9 0 08/26/2021 Sex and Gender Information Value Date Recorded Sex Assigned at Male 12/19/2024 5:50 AM CDT Legal Sex Male 10:41 PM CDT Gender Identity Not on file Sexual Orientation Not on file 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 No / Unsure 08/25/2021 9:08 AM CDT documented as of this encounter Plan of Treatment Upcoming Encounters Date Type Department Care Team (Late st Contact Info) Description 03/02/2026 9:30 AM CDT Office Visit [facility], [address] [place], [place] [phone] Clinton Palomino MD Three [facility]. [address] [place], [place] [id number] documented as of this encounter Visit Diagnoses Not on filedocumented in this encounter Additional Health Concerns Assessment Noted Time PHQ-9 Depression Total Score: 2 08/27/19 22 8:21 AM CDT documented as of this encounter Care Teams Waiter/Waitress Tavern Relationship Specialty Start Date End Date Morelia Oh NP PCP - General 10/07/15 Clinton Palomino MD Three [facility]. [address] [place] [address] [place] Director Wholesale INTERVENTIONAL CARDIOLOGY 05/30/19 documented as of this encounter
--- OUTSIDE RECORDS SUMMARY | 2025-03-03 13:53 | XMS_ITS | Encounter Summary ---
Author Organization [facility] Address [facility] [place] [address] Care Team Providers Care Medical Illustrator Name Role Phone Adriano Morelia Cabello DIGITAL MEASUREMENT ADVISOR Primary Care Provider [phone] Tico Gabriel MD Unavailable [phone] Morelia Oh [place] DIGITAL MEASUREMENT ADVISOR Primary Care Provider + Clinton Palomino MD Unavailable [phone] Encounter Details Date Type Department Care Team (Late Contact Info) Description 09/28/2015 Abstract [facility] [address] [place] [address] Tico Gabriel MD [address] [address] Social History Tobacco Use Types Packs/Day Years Used Date Smoking Tobacco: Never Alcohol Use Standard Drinks/Week Comments No 0 (1 standard drink = 0.6 oz pur e alcohol) Sex and Gender Information Value Date Recorded Sex Assigned at Male 12/19/2024 5:50 AM CDT Legal Sex Male 10:41 PM CDT Gender Identity Not on file Sexual Orientation Not on file 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 [address] [place], [place] [id number] documented as of this encounter Visit Diagnoses Not on filedocumented in this encounter Care Teams Medical Illustrator Relationship Specialty Start Date End Date Morelia Oh, DIGITAL MEASUREMENT ADVISOR PCP - General 10/07/15 Morelia Oh, DIGITAL MEASUREMENT ADVISOR PCP - General 04/27/15 10/06/15 Tico Gabriel MD Fabiola Oil Expert CARDIOVASCULAR DISEASE 10/07/15 05/29/19 Clinton Palomino MD Three [facility]. [address] [place], [place] [id number] Fabiola Oil Expert INTERVENTIONAL CARDIOLOGY 05/30/19 documented as of this encounter
--- OUTSIDE RECORDS SUMMARY | 2025-03-03 13:53 | XMS_ITS | Encounter Summary ---
Author Organization [facility] Address [facility] [place] [address] Care Team Providers Care Inspector Finishing Name Role Phone Adriano Morelia Cabello NP Primary Care Provider [phone] Clinton Palomino MD Unavailable [phone] Encounter Details Date Type Department Care Team (Late st Contact Info) Description 08/27/2024 [employer] Message Enc [facility], [address] [place] [address] Clinton Palomino MD Three [facility]. 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 Recommended staying on atorvastatin for now. documented in this encounter Plan of Treatment Upcoming Encounters Date Type Department Care Team (Late st Contact Info) Description 03/02/2026 9:30 AM CDT Office Visit [facility] [address] [place], [place] [id number] Clinton [facility] MD [facility] [address] [place], [place] [phone] documented as of this encounter Visit Diagnoses Not on filedocumented in this encounter Additional Health Concerns Assessment Noted Time PHQ-9 Depression Total Score: 2 03/26/20 24 11:47 AM RESIDENTIAL DIRECT SUPPORT PROFESSIONAL documented as of this encounter Care Teams Inspector Finishing Relationship Specialty Start Date End Date Morelia Oh NP PCP - General 10/07/15 Clinton Palomino MD Three [facility]. [address] [place], [place] [id number] [place] Landscape Architect INTERVENTIONAL CARDIOLOGY 05/30/19 documented as of this encounter
--- OUTSIDE RECORDS SUMMARY | 2025-03-03 13:53 | XMS_ITS | Encounter Summary ---
Author Organization [facility] Address [address] [place] [address] Care Team Providers Care Learning Disabilities Teacher Name Role Phone Adriano Morelia Cabello NP Primary Care Provider [phone] Clinton Palomino MD Unavailable [phone] Encounter Details Date Type Department Care Team (Late st Contact Info) Description 01/26/2022 [facility] Message Enc [place], [address] [place] [address] Clinton Palomino MD Three [facility]. 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 No / Unsure 01/24/2022 1:45 PM CDT documented as of this encounter Progress Notes * Ginna Lambert, MEDICAL AUDITOR - 02/01/2022 12:38 PM CDT That would be a discussion with you and your primary - Treatment considerations - (risks vs benefits) can be discussed with them Provide a log and adjustments can be made to meds * Chuyita Flynn RN - 02/01/2022 12:32 PM CDT .. documented in this encounter Plan of Treatment Upcoming Encounters Date Type Department Care Team (Late st Contact Info) Description 03/02/2026 9:30 AM CDT Office Visit [facility] [address], [address] [place], [place] [phone] Clinton Palomino MD [address] [place], [place] [address] documented as of this encounter Visit Diagnoses Not on filedocumented in this encounter Additional Health Concerns Assessment Noted Time PHQ-9 Depression Total Score: 2 08/27/19 22 8:21 AM CDT documented as of this encounter Care Teams Learning Disabilities Teacher Relationship Specialty Start Date End Date Morelia Oh NP PCP - General 10/07/15 Clinton Palomino MD [address] [place], [place] [address] [place] Resilient Tile Installer INTERVENTIONAL CARDIOLOGY 05/30/19 documented as of this encounter
--- OUTSIDE RECORDS SUMMARY | 2025-03-03 13:53 | XMS_ITS | Clinical Summary ---
Author Organization [facility] [employer] [facility] Address [address] [place] [address] Care Team Providers Care J2Ee Java Developer Name Role Phone Unavailable Primary Care Provider Unavailabl e Encounters Date Type Department Care Team Description 12/24/2024 External Device Data ST[facility] ABSTRACTION Provider, Abstract from Last 3 Months Social History Tobacco Use Types Packs/Day Years Used Date Smoking Tobacco: Never Assessed Sex and Gender Information Value Date Recorded Sex Assigned at Not on file Legal Sex Male 10:01 PM CDT Gender Identity Not on file Sexual Orientation Not on file Plan of Treatment Health Maintenance Due Date Last Done Comments HEPATITIS B VACCINES (1 of 3 - 19+ 3-dose series) 1991 FIT-DNA Q 3 years 2017 FIT/FOBT Q 1 year 2017 Flex Sig/CT Colonography Q 5 years 2017 INFLUENZA VACCINE (#1) 2024 01/18/2021, 2019 COVID-19 Vaccine (2024-2 6 season) 2025 01/14/2022, 03/02/2021, 07/16/2020, Additional history exists DTAP/TDAP/TD VACCINES (2 - T d or Tdap) 04/24/2029 04/24/2019 COLORECTAL SCREENING 02/23/2032 02/22/2022 Colorectal Cancer Screening 02/23/2032 ZOSTER VACCINE Completed 08/29/2022, 06/20/2022 Insurance [id number], [place] [id number] [employer] CHOICE FUND OA PLUS
--- OUTSIDE RECORDS SUMMARY | 2025-03-03 13:53 | XMS_ITS | Encounter Summary ---
Author Organization [facility] Address [facility] [place] [address] Care Team Providers Care Supervisor Offset Plate Preparation Name Role Phone Adriano Morelia Cabello NP Primary Care Provider [phone] Clinton Palomion MD Unavailable [phone] Encounter Details Date Type Department Care Team (Late Contact Info) Description 01/05/2024 [employer] Message Enc [facility] Family and Sports Medicine - [address] [place] [address] [facility] Provider Appointment Reschedule Social History Tobacco Use Types Packs/Day Years Used Date Smoking Tobacco: Never Passive Smoke Exposure: Past Smokeless Tobacco: Never Comments:na Alcohol Use Standard Drinks/Week Comments No 0 (1 standard drink = 0.6 oz pur e alcohol) PHQ-2 Answer Date Recorded Patient Health Questionnaire-2 Score 0 10/21/2022 Sex and Gender Information Value Date Recorded Sex Assigned at Male 12/19/2024 5:50 AM CDT Legal Sex Male 10:41 PM CDT Gender Identity Not on file Sexual Orientation Not on file 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 [address] [place] [address] documented as of this encounter Visit Diagnoses Not on filedocumented in this encounter Additional Health Concerns Assessment Noted Time PHQ-9 Depression Total Score: 2 09/14/19 23 10:49 AM CDT documented as of this encounter Care Teams Supervisor Offset Plate Preparation Relationship Specialty Start Date End Date Morelia Oh BAILER OPERATORS SUPERVISOR PCP - General 10/07/15 Clinton Palomino MD [facility]. [facility] [address] [place] [address] [place] Front Desk Attendant INTERVENTIONAL CARDIOLOGY 05/30/19 documented as of this encounter
--- OUTSIDE RECORDS SUMMARY | 2025-03-03 13:53 | XMS_ITS | Encounter Summary ---
Author Organization [facility] Address [facility] [place] [address] Care Team Providers Care Pharmacist Apprentice Name Role Phone Morelia Oh ENGINEERING TECHNICAL SPECIALIST Primary Care Provider [phone] Clinton Palomino MD Unavailable [phone] Encounter Details Date Type Department Care Team (Late st Contact Info) Description 01/24/2022 MyChart Message Enc [facility] Medical Group Family and Sports Medicine - [place] [address] [place] [address] Morelia Oh, ENGINEERING TECHNICAL SPECIALIST [address] [place] [address] Blood pressure Social History Tobacco Use Types Packs/Day Years [...] 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. [address] [place], [place] [id number] documented as of this encounter Visit Diagnoses Not on filedocumented in this encounter Additional Health Concerns Assessment Noted Time PHQ-9 Depression Total Score: 2 08/27/19 22 8:21 AM CDT documented as of this encounter Care Teams Pharmacist Apprentice Relationship Specialty Start Date End Date Morelia Oh NP PCP - General 10/07/15 Clinton Palomino MD Three [facility]. [address] [place] [address] [place] [employer] Meter Technician INTERVENTIONAL CARDIOLOGY 05/30/19 documented as of this encounter
--- OUTSIDE RECORDS SUMMARY | 2025-03-03 13:53 | XMS_ITS | Encounter Summary ---
Author Organization [facility] Address [facility] [place] [address] Care Team Providers Care Office Communication Professor Name Role Phone Adriano Morelia Cabello NP Primary Care Provider [phone] Clinton Palomino MD Unavailable [phone] Encounter Details Date Type Department Care Team (Late Contact Info) Description 06/10/2022 MyChart Message Enc [facility] Medical Group Diabetes and Endocrinology - [place] [address] [place] [address] [place] [address] [place] [address] Updated Thyroid Social History Tobacco Use Types Packs/Day Years [...] 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 No / Unsure 06/09/2022 11:07 AM PICTURE ENLARGER documented as of this encounter Plan of Treatment Upcoming Encounters Date Type Department Care Team (Late Contact Info) Description 03/02/2026 9:30 AM CDT Office Visit [facility], [address] [place], [place] [id number] Clinton Palomino MD Three [facility]. [address] [place], [place] [id number] documented as of this encounter Visit Diagnoses Not on filedocumented in this encounter Additional Health Concerns Assessment Noted Time PHQ-9 Depression Total Score: 2 02/18/20 22 3:23 PM CDT documented as of this encounter Care Teams Office Communication Professor Relationship Specialty Start Date End Date Morelia Oh NP PCP - General 10/07/15 Clinton Palomino MD Three [facility]. [address] [place] [address] [place] Product Tester [employer] INTERVENTIONAL CARDIOLOGY 05/30/19 documented as of this encounter
--- OUTSIDE RECORDS SUMMARY | 2025-03-03 13:53 | XMS_ITS | Clinical Summary ---
Author Organization [facility] Address [facility] [place] [address] Care Team Providers Care Line Mechanic Name Role Phone Oh Morelia Cabello NP Primary Care Provider [phone] Clinton Palomino MD Unavailable [phone] Allergies Active Allergy Reactions Criticality Noted Date Comments Ciprofloxacin Rash Medium 11/02/2020 Stiff neck Hydralazine Rash Low 08/11/2020 Medications Triamcinolone Acetonide (NASACORT NA) by Nasal route daily. Active XYOSTED 100 MG/0.5ML Solution Auto-injector INJECT 100mg SUBCUTANEOUSLY EVERY WEEK Active omeprazole (PRILOSEC) 40 MG capsuleIndicat ions:Gastroeso phageal reflux disease, unspecified whether esophagitis present Take 1 capsule (40 mg total) by mouth daily. 90 capsule 3 024 Active valsartan (DIOVAN) 80 MG tablet Take 1 tablet (80 mg total) by mouth daily. 90 tablet 3 025 Active metoprolol succinate ER (TOPROL-XL) 25 MG 24 hr tablet TAKE 1 TABLET DAILY 90 tablet 3 025 Active anastrozole (ARIMIDEX) 1 MG tablet 1 tablet once a week. Active SUMAtriptan (IMITREX) 25 MG tabletIndicati ons:Migraine with aura and without status migrainosus, not intractable Take 1 tablet (25 mg total) by mouth 2 (two) times daily as needed for Migraine. Max of 8 tablets (200 mg) in a 24 hour period. 10 tablet 025 Active amLODIPine (NORVASC) 10 MG tablet Take 1 tablet (10 mg total) by mouth daily. 90 tablet 3 Active atorvastatin (LIPITOR) 20 MG tablet TAKE 1 TABLET NIGHTLY AT BEDTIME 90 tablet 3 025 2024 Discontinued(O ther- Please enter comment in Notes field) amLODIPine (NORVASC) 10 MG tablet TAKE 1 TABLET DAILY 90 tablet 3 025 2024 Discontinued(R eorder) amLODIPine (NORVASC) 5 MG tablet Take 1 tablet (5 mg total) by mouth daily. NEW DOSE 02/24/25 30 tablet 3 025 2024 Discontinued Active Problems Problem Noted Date Diagnosed Date Chondromalacia 02/21/2025 Lesion of lateral popliteal nerve, unspecified l ower limb 12/04/2024 Prediabetes 09/17/2024 Thyroid dysfunction 09/17/2024 Vitamin B deficiency 09/17/2024 Pain in left ankle and joints of left foot 08/07 Sural neuropathy 08/07/2024 Closed fracture of base of fifth metatarsal bone 04/23/2024 Postoperative pain 02/23/2024 Left Achilles tendinitis 02/13/2024 CHRISTIAN (obstructive sleep apnea) 02/07/2022 Assessment & Plan (02/07/2022 9:02 AM CDT): Mild to moderate Intolerant of machine Seen to be fitted for oral device Class 2 obesity due to exces s calories without serious comorbidity with body mass index (BMI) of 35.0 to 35.9 in adult 08/26/2021 Assessment & Plan (02/19/2024 11:33 AM CDT): He is obese with a Body mass index is 37.07 kg/m . He was educated on lifestyle modifications including diet and exercise. Assessment & Plan (02/13/2023 11:37 AM CDT): He is obese with a Body mass index is 35.8 kg/m . He was educated on lifestyle modifications including diet and exercise. Seasonal allergies 08/26/2021 Gastroesophageal reflux dise ase, unspecified whether esophagitis present 08/26/2021 Obesity (BMI 30.0-34.9) 11/28/2016 Assessment & Plan (02/07/2022 9:02 AM CDT): Lifestyle modifications encouraged Interested in SGLT2 Assessment & Plan (02/01/2021 11:35 AM CDT): I recommended lifestyle modifications including diet and exercise. Hyperlipidemia, mixed 11/28/2016 Assessment & Plan (02/24/2025 9:39 AM CDT): Recent lipid panel is very well-controlled. Patient has incorporated dietary and exercise modifications and would like to trial stopping atorvastatin. Will stop atorvastatin and repeat lipid panel in 3 months. Assessment & Plan (02/19/2024 11:33 AM CDT): His last LDL was elevated. I discussed coronary calcium scoring with him. Assessment & Plan (02/13/2023 11:36 AM CDT): His last LDL was elevated. I discussed coronary calcium scoring with him. Assessment & Plan (02/07/2022 9:01 AM CDT): Lipid panel for review Assessment & Plan (02/01/2021 11:35 AM CDT): His lipids are not well controlled. Given that he had a recent intolerance to statins, I recommended lifestyle modifications. I also recommended that he have another lipid check this year. Family history of coronary artery disease 2016 Low testosterone 02/20/2015 Classic migraine with aura 07/10/2014 Allergic rhinitis 07/10/2014 Derangement of right knee 01/14/2014 Primary hypertension Assessment & Plan (02/24/2025 9:38 AM CDT): Blood pressure is well-controlled in office. He monitors blood pressure at home with average reading of 105-120/70-90 mmHg at home. He would like to trial decreasing some medications. Will decrease amlodipine to 5 mg daily. Advised patient to call in blood pressure readings in 2 weeks for further adjustments. Continue valsartan, metoprolol, amlodipine. Assessment & Plan (02/19/2024 11:33 AM CDT): Blood pressure for the most part is well controlled. Continue lisinopril, amlodipine and metoprolol. Assessment & Plan (02/13/2023 11:36 AM CDT): Blood pressure for the most part is well controlled. Continue lisinopril, amlodipine and metoprolol. Assessment & Plan (02/07/2022 9:01 AM CDT): Mildly elevated although could be due to anxiety His current blood pressure machine is greater than 10 years old -requested to update for accuracy He will monitor his blood pressure in the next week and call the office to let us know for adjustments if needed Currently we will not make any adjustments to his medication list I will add a BMP and TSH Assessment & Plan (02/01/2021 11:34 AM CDT): Blood pressure for the most part is well controlled. I have asked him to continue lisinopril 40 mg daily and I do not think that we have to add more medication. Nephrolithiasis Resolved Problems Problem Noted Date Diagnosed Date Resolved Date Stress fracture of left calcaneus 01/25/2024 02/21/2025 Bursitis of left foot 02/23/20232024 Congenital cavus deformity of both feet 02/23/2023 02/21/2025 Pain in both feet 02/23/2023 02/21/2025 Equinus contracture of ankle 02/23/2023 02/21/2025 Pain in left foot 01/26/2023 02/21/2025 Plantar fasciitis 01/26/2023 02/21/2025 Anxiety 08/26/2021 11/11/2022 Pure hypercholesterolemia 12/10/2020 Trigger thumb of left hand 10/27/2020 1 Triggering of digit 10/27/2020 02/22/20 25 Extensor tenosynovitis of wrist 02/20/2020 11/11/2022 Contact dermatitis 10/05/2017 3 Cervical radiculopathy 04/20/201611/11 Osteoarthritis of finger 12/02/2015 Lateral epicondylitis 07/23/20152022 Heartburn 07/22/2015 08/26/2021 Altitude sickness 06/11/2015 08/26/2021 Bursitis of shoulder 02/18/2015 023 Muscle spasm 09/12/2014 11/11/2022 Abnormal MRI 07/10/2014 08/26/2021 Hx of endoscopy 06/03/2013 08/26/2021 Overview (08/17/2020): Overview: Overview: Colon 12/11/2011: for abdomianl pain, altered bm by megan bianca Colonoscopy normal to TI, distal 5 cm TI normal. Noted that the patients symptoms dramatically improved on pamine forte. No randombx done. No records of EGD by [facility] per medica records from [id number]. Labs 05/16/2013: normal cmp except for gluocse 108, alt 42 Albumin 4.7 Creat 0.82 tsh normal Mg 2.1 hgb 18, wbc 10, plt 262 Maylin negative Heavy metals pending-additional sample needed, pat redraw requested, iga 152 Vit b12 520 sjogrens neg TTg IGA neg Zn 67 (normal but low end of normal (60-130 range) Overview: Colon 12/11/2011: for abdomianl pain, altered bm by megan bianca Colonoscopy normal to TI, distal 5 cm TI normal. Noted that the patients symptoms dramatically improved on pamine forte. No randombx done. No records of EGD by [facility] per medica records from [phone]. Labs 05/16/2013: normal cmp except for gluocse [...] randombx done. No records of EGD by [facility] per medica records from [id number]. Labs 05/16/2013: normal cmp except for gluocse 108, alt 42 Albumin 4.7 Creat 0.82 tsh normal Mg 2.1 hgb 18, wbc 10, plt 262 Maylin negative Heavy metals pending-additional sample needed, pat redraw requested, iga 152 Vit b12 520 sjogrens neg TTg IGA neg Zn 67 (normal but low end of normal (60-130 range) Prostatic hyperplasia 12/30/20112022 Encounters Date Type Department Care Team Description 03/03/2025 MyChart Message Enc [facility], [address] [address] Mychart, [facility] Provider 03/03/2025 MyChart Message [facility], [address] [address] Cheryl Cabrera PA Follow from 02/24 appt 02/24/2025 9:30 AM CDT Office Visit [facility] [address] [address] Clinton Palomino MD Lanter, Megan N, PA Lipids (1 yr follow up) 02/24/2025 Travel 02/14/2025 Scan HEALTH INFO SRVCS Scanned, [facility] Image (SCAN); Procedure (SCAN) 02/05/2025 Scan HEALTH INFO SRVCS Scanned, [facility] 01/27/2025 4:00 PM CDT - 01/27/2025 11:59 PM CDT Hospital Encounter [facility] [place] [address] Fabiola Cox, SAMPLE WASHER Discharge Disposition: Home or Self Care (Routine Discharge) 01/27/2025 Travel 01/23/2025 Results Follow-Up [facility] - [place] [address] [place] [address] Morelia Oh, AMARILIS CBC W/DIFF AUTOMATED, COMPREHENSIVE METABOLIC PANEL, LIPID PANEL, Additional followed-up results: 3 01/21/2025 8:40 AM CDT Laboratory Only [facility] [address] [place] [address] Morelia Oh, SAMPLE WASHER 01/21/2025 8:00 AM CDT Office Visit [facility] [address] [place] [address] Morelia Oh, AMARILIS Physical (Annual PX. Last done 03/26/24. Recently had kidney stones- did pass one of them. Imaging showed two hernias- referral? ); Medication (Discuss Prilosec and Lipitor. ) 01/21/2025 Travel 01/15/2025 MyChart Message Enc [facility] [address] [place] [address] Morelia Oh, SAMPLE WASHER Bloodwork 01/07/2025 Scan [facility] HEALTH INFO SRVCS Scanned, [facility] 12/29/2024 MyChart Message Enc [facility] [address] [place] [address] Morelia Oh, AMARILIS Surgery recommendation 12/19/2024 5:04 AM CDT - 12/19/2024 6:48 AM CDT Emergency [facility] [place] [address] Yovana Marcum MD Back Pain Discharge Disposition: Home or Self Care (Routine Discharge) 12/19/2024 Travel 12/09/2024 MyChart Message Enc [facility] [address] [place] [address] Morelia Oh, SAMPLE WASHER Thyroid from Last 3 Months Immunizations Immunization Administration Dates Next Due Flucelvax 6 Months+ (Prefill ed Syringe) 02/02/2020 Fluzone 6 Months+ Quad (0.5 mL Prefilled Syringe) 01/18/2021 Influenza (Generic) 05/10/2013 Influenza Adult (Generic) 01/14/2022,,03/06/2018,2014 PFIZER COVID-19 (ORIGINAL FORMULATION, PURPLE CAP) mRNA, LNP-S, PF, 30 MCG/0.3 ML DOSE 01/14/2022,03/02/2021,07/16/2020,2020 PFIZER COVID-19 BIVALENT (12 +) mRNA, LNP-S, PF, 30 MCG/0.3 ML DOSE 01/14/2022 Shingrix 08/29/2022,06/20/2022 Tdap (Generic) 01/22/2024 Tdap (Historical Only-select from magnify glass) 04/24/2019 Family History Medical History Relation Comments Cancer Father Heart Disease Father Hypertension Father CABG Maternal Grandmother Heart Attack Maternal Grandmother Heart Disease Mother Hypertension Mother Relation Status Comments Father Alive Maternal Grandmother (Age 59) Mother Alive Social History Tobacco Use Types Packs/Day Years Used Date Smoking Tobacco: Never Passive Smoke Exposure: Past Smokeless Tobacco: Never Tobacco Cessation:Counseling Given: No Comments:na Alcohol Use Standard Drinks/Week Comments Never [...] 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 Not on file Not on file Last Filed Vital Signs Vital Sign Reading Time Taken Comments Blood Pressure 130/82 02/24/2025 9:22 AM CDT Pulse 91 02/24/2025 9:22 AM CDT Temperature 36.9 C (98.5 F) 01/21/2025 8:04 AM CDT Respiratory Rate 18 02/24/2025 9:22 AM CDT Oxygen Saturation 99% 02/24/2025 9:22 AM CDT Inhaled Oxygen Concentration - - Weight 96.7 kg (213 lb 3.2 oz) 02/24/2025 9:22 A M CDT Height 175.3 cm (5' 9) 02/24/2025 9:22 AM CDT Body Mass Index 31.48 02/24/2025 9:22 AM CDT Plan of Treatment Upcoming Encounters Date Type Department Care Team (Late st Contact Info) Description 03/02/2026 9:30 AM CDT Office Visit [facility], [address] [place], [place] [id number] Clinton Palomino MD Three [facility]. [address] [place], [place] [id number] Health Maintenance Due Date Last Done Comments Hepatitis B Vaccines (1 of 3 - 19+ 3-dose series) 1991 Pneumococcal Vaccine: 50+ Years (1 of 1 - PCV) 2022 COVID-19 Vaccine ( - season) 2025 01/14/2022, 01/14/2022, 03/02/2021, Additional history exists Influenza Adult (#1) 2025 01/14/2022, 01/18/2021, 02/02/2020, Additional history exists Annual Physical 01/21/2026 01/21/2025, 03/08, 09/13/2022, Additional history exists Colorectal Cancer Screening Colonoscopy (10 Years) 02/23/2032 02/22/2022, 02/22/2022, 02/22/2022, Additional history exists DTaP, Tdap and Td Vaccines (3 - Td or Tdap) 01/21/2034 01/22/2024, 04/24/2019 Hepatitis C Completed 02/20/2020 Zoster Vaccines Completed 08/29/2022, 06/20/2022 PHQ-2 (Physician [place]) Completed 01/21/2025 Hepatitis A Vaccines Aged Out No long er eligible based on patient's age to complete this topic Meningococcal B Vaccine Aged Out No l onger eligible based on patient's age to complete this topic Meningococcal Vaccine Aged Out No kaye steve eligible based on patient's age to complete this topic RSV Immunizations Under 20 Months Aged Out No longer eligible based on patient's age to complete this topic Procedures Procedure Name Priority Date/Time Associated Diagnosis Comments IMAGE GENERIC 02/14/2025 PROCEDURE GENERIC (SCAN ORDER) 02/14/2025 XR ABD KUB Routine 01/27/2025 4:12 PM CDT Personal history of kidney stones HEMOGLOBIN, GLYCOSYLATED Routine 01/21/2025 8:42 AM CDT Screening for diabetes mellitus (DM) VITAMIN D, 25 OH Routine 01/21/2025 8:42 AM CDT Encounter for vitamin deficiency screening TSH W/REFLEX Routine 01/21/2025 8:42 AM CDT Screening for thyroid disorder LIPID PANEL Routine 01/21/2025 8:42 AM CDT Screening, lipid COMPREHENSIVE METABOLIC PANEL Routine 01/21/2025 8:42 AM CDT Screening, lipid CBC W/DIFF AUTOMATED Routine 01/21/2025 8:42 AM CDT Screening, anemia, deficiency, iron COLLECTION VENOUS BLOOD VENIPUNCTURE Routine 01/21/2025 8:36 AM CDT Screening, lipid CT ABD+PEL WO CON STAT 12/19/2024 5:2 4 AM CDT COMPREHENSIVE METABOLIC PANEL STAT 12/19/2024 5:17 AM CDT CBC W/DIFF AUTOMATED STAT 12/19/2024 5:17 AM CDT URINE BACTERIA CULTURE STAT 5:09 AM CDT HC URINALYSIS AUTO W/O MICRO STAT 12/19/2024 5:09 AM CDT COLONOSCOPY Routine 02/22/2022 2:10 PM CDT HEPATITIS C ANTIBODY Routine 02/20/2020 3:54 PM CDT Need for hepatitis C screening test from Last 3 Months or Most Recently Relevant to Health Maintenance Results * IMAGE GENERIC (02/14/2025) Anatomical Region Laterality Modality Other 02/14/2025 us [facility] Scanned SCANNING Final Resu lt * PROCEDURE GENERIC (SCAN ORDER) (02/14/2025) 02/14/2025 us [facility] Scanned SCANNING Final Resu lt * XR ABD KUB (01/27/2025 4:12 PM CDT) Anatomical Region Laterality Modality Abdomen Radiographic Roxy ging 01/28/2025 11:1 4 AM CDT Impressions 01/28/2025 11:16 AM CDT IMPRESSION: 1. Multiple tiny stones in the right kidney. No definitive left renal stones identified. 2. Multiple punctate hyperdense foci throughout the colon likely within diverticula. Ordered By: FABIOLA COX Interpreted By: Rolan Hankins MD, 01/28/2025 11:14 AM Narrative 01/28/2025 11:16 AM CDT [address] [address] Examination: Abdomen 1 view Exam date/time: 01/27/2025 4:04 PM Reason For Exam: 54 male. Right renal stone follow-up. Comparison: CT abdomen pelvis 12/19/2024 Technique: Supine frontal views of the abdomen and pelvis Findings: Multiple punctate hyperdense foci present throughout the colon probably within diverticula. There are multiple tiny stones in the right kidney. No definitive left renal stones identified possibly due to overlapping colon with punctate hypodense foci as discussed above. No stones are seen along the course of the ureters or bladder within study limits. Skeletal structures are unremarkable. Lung bases are clear. Procedure Note Rolan Hankins MD - 01/28/[address] [address] Examination: Abdomen 1 view Exam date/time: 01/27/2025 4:04 PM Reason For Exam: 54 male. Right renal stone follow-up. Comparison: CT abdomen pelvis 12/19/2024 Technique: Supine frontal views of the abdomen and pelvis Findings: Multiple punctate hyperdense foci present throughout the colonprobably within diverticula. There are multiple tiny stones in the right kidney. No definitive leftrenal stones identified possibly due to overlapping colon with punctatehypodense foci as discussed above. No stones are seen along the course ofthe ureters or bladder within study limits. Skeletal structures are unremarkable. Lung bases are clear. IMPRESSION: 1. Multiple tiny stones in the right kidney. No definitive left renalstones identified. 2. Multiple punctate hyperdense foci throughout the colon likely withindiverticula. Ordered By: FABIOLA COX Interpreted By: Rolan Hankins MD, 01/28/2025 11:14 AM us Fabiola Cox SAMPLE WASHER GENERAL [facility]AG[facility] Final Result * TSH W/REFLEX (01/21/2025 8:42 AM CDT) TSH 1.66 0.40 - 4.50 mIU/L [employer] [facility] 01/21/2025 8:42 AM CDT 01/22/2025 3:52 AM CDT Narrative Resulting Agency Comment Performing Organization Information: Site ID: [place] Name: [facility] Address: [address] [place] [address] [place] [address] Director: Juan Miguel Shore MD us Morelia Oh NP LABORATORY Final Result Performing Organization Address [facility] Co de Phone Number ZOYA KELLEY [address] [place] [address], [place] * HEMOGLOBIN, GLYCOSYLATED (01/21/2025 8:42 AM CDT) HGB A1C 5.2 <5.7 % [facility] Comment: For the purpose of screening for the presence of diabetes: <5.7% Consistent with the absence of diabetes 5.7-6.4% Consistent with increased risk for diabetes (prediabetes) > or =6.5% Consistent with diabetes This assay result is consistent with a decreased risk of diabetes. Currently, no consensus exists regarding use of hemoglobin A1c for diagnosis of diabetes in children. According to [place] Diabetes Association (ADA) guidelines, hemoglobin A1c <7.0% represents optimal control in non- diabetic patients. Different metrics may apply to specific patient populations. Standards of Medical Care in Diabetes(ADA). 01/21/2025 8:42 AM CDT 01/22/2025 3:52 AM CDT Narrative Resulting Agency Comment Performing Organization Information: Site ID: [place] Name: [facility] Address: [address] [place] [address] [place] [address] Director: Juan Miguel Shore MD us Morelia Oh NP LABORATORY Final Result Performing Organization Address [facility] Co de Phone Number ZOYA KELLEY [facility] MEÑO [address] [place] [address], * (ABNORMAL) COMPREHENSIVE METABOLIC PANEL (01/21/2025 8:42 AM CDT) Only the most recent of2 resultswithin the time period is included. GLUCOSE 78 65 - 99 mg/dL [facility] [employer] [facility] Comment: Fasting reference interval BUN 16 7 - 25 mg/dL [facility] CREATININE S/P/B 1.08 0.70 - 1.30 mg/dL [facility] [employer] [facility] GFR ESTIMATE 83 > OR = 60 mL/min/1. 73m2 [employer] [facility] BUN CREATININE RATIO SEE NOTE: 6 - 22 (calc) [employer] [facility] Comment: Not Reported: BUN and Creatinine are within reference range. SODIUM S/P/B 140 135 - 146 mmol/L [employer] [facility] POTASSIUM S/P/B 5.4(H) 3.5 - 5.3 mmol/L [employer] [facility] CHLORIDE S/P/B 104 98 - 110 mmol/L [employer] E[facility]IO CO2 26 20 - 32 mmol/L [employer] [facility] CALCIUM S/P/B 10.1 8.6 - 10.3 mg/dL [employer] [facility] TOTAL PROTEIN S/P/B 7.6 6.1 - 8.1 g/dL [employer] [facility] ALBUMIN S/P/B 5.1 3.6 - 5.1 g/dL [employer] [facility] GLOBULIN 2.5 1.9 - 3.7 g/dL (calc) [employer] [facility] ALBUMIN/GLOBULI N RATIO 2.0 1.0 - 2.5 (calc) [employer] [facility] BILIRUBIN TOTAL S/P/B 0.5 0.2 - 1.2 mg/dL [employer] [facility] ALKALINE PHOSPHATASE S/P/B 68 35 - 144 U/L [employer] [facility] AST 22 10 - 35 U/L [employer] [facility] ALT 30 9 - 46 U/L [employer] [facility] 01/21/2025 8:42 AM CDT 01/22/2025 3:52 AM CDT Narrative Resulting Agency Comment Performing Organization Information: Site ID: [place] Name: [facility] Address: [address] [place] [address] Director: Juan Miguel Shore MD Morelia Oh NP LABORATORY Final Result ZOYA KELLEY [facility] [address] [place] [address], * LIPID PANEL (01/21/2025 8:42 AM CDT) CHOLESTEROL 141 <200 mg/dL [employer] [facility] HDL 48 > OR = 40 mg/dL [employer] [facility] TRIGLYCERIDES 134 <150 mg/dL [facility] LDL (CALCULATED) 71 mg/dL (calc) [employer] [facility] Comment: Reference range: <100 Desirable range <100 mg/dL for primary prevention; <70 mg/dL for patients with CHD or diabetic patients with > or = 2 CHD risk factors. LDL-C is now calculated using the Chiqui calculation, which is a validated novel method providing better accuracy than the Friedewald equation in the estimation of LDL-C. Benji SS et al. NOREEN. 2013;310(19): 0927-8461 (http://education.[employer]/faq/AVG231) CHOL/HDL RATIO 2.9 <5.0 (calc) [facility] NON HDL CHOLESTEROL 93 <130 mg/dL (calc) [employer] [facility] Comment: For patients with diabetes plus 1 major ASCVD risk factor, treating to a non-HDL-C goal of <100 mg/dL (LDL-C of <70 mg/dL) is considered a therapeutic option. 01/21/2025 8:42 AM CDT 01/22/2025 3:52 AM CDT Narrative Resulting Agency Comment Performing Organization Information: Site ID: [place] [facility] Address: [address] [place] [address] Director: Juan Miguel Shore MD Morelia Oh NP LABORATORY Final Result [facility] [address] [facility] [place] [address], * (ABNORMAL) CBC W/DIFF AUTOMATED (01/21/2025 8:42 AM CDT) Only the most recent of2 resultswithin the time period is included. WBC 7.8 3.8 - 10.8 Thousand/ uL [employer] [facility] RBC 6.59(H) 4.20 - 5.80 Million/u L [employer] [facility] HGB 17.4(H) 13.2 - 17.1 g/dL [employer] [facility] HCT 53.8(H) 38.5 - 50.0 % [employer] [facility] MCV 81.6 80.0 - 100.0 fL [employer] [facility] MCH 26.4(L) 27.0 - 33.0 pg [facility] MCHC 32.3 32.0 - 36.0 g/dL [facility] Comment: For adults, a slight decrease in the calculated MCHC value (in the range of 30 to 32 g/dL) is most likely not clinically significant; however, it should be interpreted with caution in correlation with other red cell parameters and the patient's clinical condition. RDW 17.0(H) 11.0 - 15.0 % [employer] EULALIO PLT 279 140 - 400 Thousand/ uL [employer] [facility] MPV 10.8 7.5 - 12.5 fL [facility] EUL[facility] ABS. NEUTROPHILS 4,969 1,500 - 7,800 cells/uL [employer] [facility] ABS. LYMPHOCYTES 2,036 850 - 3,900 cells/uL [employer] [facility] ABS. MONOCYTES 671 200 - 950 cells/uL [facility] ABS. EOSINOPHILS 78 15 - 500 cells/uL [employer] [facility] ABS. BASOPHILS 47 0 - 200 cells/uL [employer] [facility] SEG NEUTROPHILS 63.7 % [facility] EUL[facility]IO LYMPHOCYTES 26.1 % [employer] [facility] MONOCYTES 8.6 % [facility] EULALIO EOSINOPHILS 1.0 % [employer] [facility] BASOPHILS 0.6 % [employer] [facility] 01/21/2025 8:42 AM CDT 01/22/2025 3:52 AM CDT Narrative Resulting Agency Comment Performing Organization Information: Site ID: [place] Name: [facility] Address: [address] [place] [id number] Director: Juan Miguel Shore MD Morelia Oh NP LABORATORY Final Result [employer] [facility] [employer] [facility] [id number] [place] [id number], * VITAMIN D, 25 OH (01/21/2025 8:42 AM CDT) VITAMIN D 25 HYDROXY TOTAL S/P/B 47 30 - 100 ng/mL [employer] [facility] Comment: Vitamin D Status 25-OH Vitamin D: Deficiency: <20 ng/mL Insufficiency: 20 - 29 ng/mL Optimal: > or = 30 ng/mL For 25-OH Vitamin D testing on patients on D2-supplementation and patients for whom quantitation of D2 and D3 fractions is required, the QuestAssureD(TM) 25-OH VIT D, (D2,D3), LC/MS/MS is recommended: order code [id number] (patients >2yrs). See Note 1 Note 1 For additional information, please refer to http://education.[employer]/faq/QSD395 (This link is being provided for informational/ educational purposes only.) 01/21/2025 8:42 AM CDT 01/22/2025 3:52 AM CDT Narrative Resulting Agency Comment Performing Organization Information: Site ID: MARIA ALEJANDRA Name: [facility] Address: [address] [address] Director: Juan Miguel Shore MD us Morelia Oh NP LABORATORY Final Result [employer] Rosalba KELLEY [facility] [address] [place] [address], [place] * CT ABD+PEL WO CON (12/19/2024 5:24 AM CDT) Anatomical Region Laterality Modality Abdomen Computed Tomogra phy 12/19/2024 5:48 AM CDT Impressions 12/19/2024 5:55 AM CDT IMPRESSION: 1. A 4 mm partially obstructing calculus at or near the left ureterovesical junction with mild left hydronephrosis and left hydroureter. 2. Several nonobstructing 2-5 mm calculi in bilateral kidneys, larger and more numerous on the right. 3. Mildly enlarged prostate. Please correlate with PSA levels. 4. Small hiatal hernia. Small fat-containing right inguinal hernia. 5. Mild colonic diverticulosis without diverticulitis. Referred By: Interpreted By: Erika Atkins MD, 12/19/2024 5:48 AM Narrative 12/19/2024 5:55 AM CDT [facility] [address] [place], [place] [address] EXAMINATION: CT Abdomen and Pelvis without intravenous contrast, axial images with 2D coronal and sagittal reconstruction. This CT exam was performed using one or more of the following dose reduction techniques: automated exposure control, adjustment of the mA and/or kV according to patient size, the use of iterative reconstruction technique, use of ALARA (As Low As Reasonably Achievable) and/or use of Image Gently techniques. INDICATION: Left-sided flank pain x3 hours, urinary urgency, decreased urine output, history of kidney stones. COMPARISON: CT abdomen and pelvis without contrast 08/19/2016. FINDINGS: The included lower lungs are clear. No pleural or pericardial effusions. Heart size is normal. Liver, spleen, gallbladder, pancreas, bilateral adrenal glands are unremarkable. Mild left hydronephrosis and left hydroureter with a 4 mm partially restricting calculus at or near the left ureterovesical junction. Several nonobstructing 2-5 mm calculi in bilateral kidneys, larger and more numerous on the right. No right hydronephrosis or right hydroureter. Bladder is not well distended, limiting evaluation. Mildly enlarged prostate. Small fat-containing right inguinal hernia. Small hiatal hernia. Limited evaluation of stomach and rectum and sigmoid colon for wall thickening due to nondistention. Mild colonic diverticulosis, best seen in the sigmoid colon, without acute inflammatory changes to suggest diverticulitis. Retrocecal appendix without appendicitis. No bowel obstruction. No ascites or adenopathy. Nonspecific shotty retroperitoneal lymph nodes without significant change from 08/19/2016. Mild atherosclerotic calcifications in the abdominal aorta and its distal branches without aneurysm. Mild congenital/chronic anterior wedging T11 through L2 vertebral bodies. Mild degenerative central canal narrowing at L4-5. No acute osseous abnormality. Procedure Note Erika Atkins MD - 12/19/2024 [facility] [address] [place], [place] [address] EXAMINATION: CT Abdomen and Pelvis without intravenous contrast, axialimages with 2D coronal and sagittal reconstruction. This CT exam was performed using one or more of the following dosereduction techniques: automated exposure control, adjustment of the mAand/or kV according to patient size, the use of iterative reconstructiontechnique, use of ALARA (As Low As Reasonably Achievable) and/or use ofImage Gently techniques. INDICATION: Left-sided flank pain x3 hours, urinary urgency, decreasedurine output, history of kidney stones. COMPARISON: CT abdomen and pelvis without contrast 08/19/2016. FINDINGS: The included lower lungs are clear. No pleural or pericardialeffusions. Heart size is normal. Liver, spleen, gallbladder, pancreas,bilateral adrenal glands are unremarkable. Mild left hydronephrosis andleft hydroureter with a 4 mm partially restricting calculus at or near theleft ureterovesical junction. Several nonobstructing 2-5 mm calculi inbilateral kidneys, larger and more numerous on the right. No righthydronephrosis or right hydroureter. Bladder is not well distended,limiting evaluation. Mildly enlarged prostate. Small fat- containingright inguinal hernia. Small hiatal hernia. Limited evaluation of stomach and rectum and sigmoidcolon for wall thickening due to nondistention. Mild colonicdiverticulosis, best seen in the sigmoid colon, without acute inflammatorychanges to suggest diverticulitis. Retrocecal appendix withoutappendicitis. No bowel obstruction. No ascites or adenopathy.Nonspecific shotty retroperitoneal lymph nodes without significant changefrom 08/19/2016. Mild atherosclerotic calcifications in the abdominalaorta and its distal branches without aneurysm. Mild congenital/chronicanterior wedging T11 through L2 vertebral bodies. Mild degenerativecentral canal narrowing at L4-5. No acute osseous abnormality. IMPRESSION: 1. A 4 mm partially obstructing calculus at or near the leftureterovesical junction with mild left hydronephrosis and lefthydroureter. 2. Several nonobstructing 2-5 mm calculi in bilateral kidneys, larger andmore numerous on the right. 3. Mildly enlarged prostate. Please correlate with PSA levels. 4. Small hiatal hernia. Small fat-containing right inguinal hernia. 5. Mild colonic diverticulosis without diverticulitis. Referred By: Interpreted By: Erika Atkins MD, 12/19/2024 5:48 AM Skye Castillo MD CT Final Resul t * (ABNORMAL) URINALYSIS (12/19/2024 5:09 AM CDT) SPECIMEN TYPE URINE CLEAN CATCH 12/19/2024 5:18 AM CDT [facility] COLOR (U) YELLOW 12/19/2024 6:26 AM CDT [facility] TRANSPARENCY CLEAR 12/19/2024 6:26 AM CDT [facility] SPECIFIC GRAVITY (U) 1.023 1.001 - 1.030 12/19/2024 6:26 AM CDT [facility] U PH 5.5 5.0 - 9.0 12/19/2024 6:26 AM CDT [facility] LEUKOCYTES (U) NEGATIVE NEGATIVE 12/19/2024 6:26 AM CDT [facility] NITRITES NEGATIVE NEGATIVE 12/19/2024 6:26 AM CDT [facility] PROTEIN RANDOM (U) NEGATIVE <30 MG/DL 12/19/2024 6:26 AM T [facility] GLUCOSE (U) NORMAL NORMAL MG/DL 12/19/2024 6:26 AM T [facility] KETONES MG/DL (U) NEGATIVE NEGATIVE MG/DL 12/19/2024 6:26 AM T [facility] UROBILINOGEN NORMAL NORMAL MG/DL 12/19/2024 6:26 AM T [facility] BILIRUBIN (U) NEGATIVE NEGATIVE MG/DL 12/19/2024 6:26 AM T [facility] BLOOD (U) 2+(A) NEGATIVE 12/19/2024 6:26 AM T [facility] MUCUS RARE /LPF 12/19/2024 6:26 AM CDT [facility] WBC/HPF 2 <6 /HPF 12/19/2024 6:26 AM CDT [facility] RBC/HPF >100(H) <6 /HPF 12/19/2024 6:26 AM CDT [facility] URINE SPECIMEN OBTAINED BY CLEAN CATCH PROCEDURE / Unknown 12/19/2024 5:09 AM CDT Yovana Marcum MD URINE ORDERABLES Final Result Performing Organization Address City/[facility]/ZIP Co de Phone Number [facility] [address] [place] [address], [place] [phone] * CULTURE URINE (12/19/2024 5:09 AM CDT) SPEC DESCRIPTION URINE CLEAN CATCH 12/19/2024 6:35 AM CDT [facility] SPECIAL REQUESTS NO SPECIAL REQUEST 12/19/2024 6:35 AM CDT [facility] CULTURE RESULT NO GROWTH 2 DAYS 12/21/2024 8:37 AM CDT [facility] URINE SPECIMEN OBTAINED BY CLEAN CATCH PROCEDURE / Unknown 12/19/2024 5:09 AM CDT 12/19/2024 6:36 AM CDT Yovana Marcum MD MICROBIOLOGY - GENERAL ORDERA BLES Final Result [facility] [address] [place] [address], [place] [phone] * Colonoscopy (02/22/2022 2:10 PM CDT) Narrative Megan Calzada MD - 02/22/2022 2:10 PM CDT Megan Calzada MD 02/22/2022 2:12 PM MEGAN CALZADA MD, FACG, FACP COLONOSCOPY 02/22/2022 INDICATION: Screening for colon cancer. POST-OP: Normal. SEDATION: Per Anesthesia PREP: Good. With the patient in the left lateral decubitus position, the Olympus [id number] colonoscope was introduced into the rectum and advanced easily to the Terminal Ileum. Careful inspection of the mucosa was made upon insertion and withdrawal of the endoscope. FINDINGS: Terminal ileum: distal 5 cm normal. Cecum, Ascending colon, Transverse colon, Descending colon, Sigmoid colon and Rectum including retroflexion normal. No masses, polyps, AVMs, colitis or diverticulosis seen. No complications, blood loss or implants. ASSESSMENT AND PLAN: Unremarkable colonoscopy: screening colonoscopy in 10 years. Thank you for allowing me to care for your patient. He will follow-up with AMARILIS Oh as needed. Megan Calzada M.D. Cc: AMARILIS Oh Megan Calzada MD GI PROCEDURE ORDERABLES Fin al Result * HEPATITIS C ANTIBODY (NOT for WWD) (02/20/2020 3:54 PM CDT) HEPATITIS C AB NON-REACTI VE NON-REACTI VE 02/20/2020 8:03 PM CDT [facility] 02/20/2020 3:54 PM CDT Morelia Oh NP LABORATORY Final Result [facility] [address] [place] [address], from Last 3 Months or Most Recently Relevant to Health Maintenance Insurance [facility] [employer] Care Teams Line Mechanic Relationship Specialty Start Date End Date Morelia Oh NP PCP - General 10/07/15 Clinton Palomino MD Three [facility] [address] [place] [address] Sunflower Pool Nurse INTERVENTIONAL CARDIOLOGY 05/30/19
--- OUTSIDE RECORDS SUMMARY | 2025-03-03 13:53 | XMS_ITS | Encounter Summary ---
Author Organization [facility] Address [facility] [place] [address] Care Team Providers Care State Auditor Name Role Phone Oh Morelia Cabello NP Primary Care Provider [phone] Clinton Palomino MD Unavailable [phone] Encounter Details Date Type Department Care Team (Late Contact Info) Description 09/23/2022 tarpipe Message Enc [facility] Medical Group Family and Sports Medicine - [place] [address] [place] [address] [place], [employer] Provider Medication Social History Tobacco Use Types Packs/Day Years Used Date Smoking Tobacco: Never Smokeless Tobacco: Never Comments:na Alcohol Use Standard Drinks/Week Comments No 0 (1 standard drink = 0.6 oz pur e alcohol) PHQ-2 Answer Date Recorded Patient Health Questionnaire-2 Score 0 09/13/2022 Sex and Gender Information Value Date Recorded Sex Assigned at Male 12/19/2024 5:50 AM CDT Legal Sex Male 10:41 PM CDT Gender Identity Not on file Sexual Orientation Not on file 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 No / Unsure 09/13/2022 9:53 AM CDT documented as of this encounter Plan of Treatment Upcoming Encounters Date Type Department Care Team (Late Contact Info) Description 03/02/2026 9:30 AM CDT Office Visit [facility], [address] [id number] Clinton Palomino MD Three [facility]. [address] [place], [place] [phone] documented as of this encounter Visit Diagnoses Not on filedocumented in this encounter Additional Health Concerns Assessment Noted Time PHQ-9 Depression Total Score: 2 09/14/19 23 10:49 AM CDT documented as of this encounter Care Teams State Auditor Relationship Specialty Start Date End Date Morelia Oh NP PCP - General 10/07/15 Clinton Palomino MD Three [facility]. [address] [place] [address] Fabiola Theatrical Scenic Designer INTERVENTIONAL CARDIOLOGY 05/30/19 documented as of this encounter
--- OUTSIDE RECORDS SUMMARY | 2025-03-03 13:53 | XMS_ITS | Encounter Summary ---
Author Organization [facility] Address [facility] [place] [address] Care Team Providers Care Pulley Maintainer Name Role Phone Adriano Morelia Cabello NP Primary Care Provider [phone] Clinton Palomino MD Unavailable [phone] Encounter Details Date Type Department Care Team (Late st Contact Info) Description 01/18/2022 Xigen Message Enc [facility] Medical Group Orthopedic & Sports Medicine - [address] [place] [address] [facility], [facility] Provider apt Social History Tobacco Use Types Packs/Day Years [...] 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 [address] [place], [place] [phone] documented as of this encounter Visit Diagnoses Not on filedocumented in this encounter Additional Health Concerns Assessment Noted Time PHQ-9 Depression Total Score: 2 08/27/19 22 8:21 AM CDT documented as of this encounter Care Teams Pulley Maintainer Relationship Specialty Start Date End Date Morelia Oh NP PCP - General 10/07/15 Clinton Palomino MD Three [facility]. [address] [place] [address] Fabiola Powder Room Attendant INTERVENTIONAL CARDIOLOGY 05/30/19 documented as of this encounter
--- OUTSIDE RECORDS SUMMARY | 2025-03-03 13:53 | XMS_ITS | Encounter Summary ---
Author Organization [facility] Address [facility] [place] [address] Care Team Providers Care Insurance Follow Up Specialist Name Role Phone Adriano Morelia Cabello NP Primary Care Provider [phone] Clinton Palomino MD Unavailable [phone] Encounter Details Date Type Department Care Team (Late Contact Info) Description 08/11/2022 MyCVidyardt Message Enc [facility] Medical Group Diabetes and Endocrinology - [place] [address] [facility] [place] [address] [place] [address] [place] [address] [place] [address] Address bloodwork? 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 [address] [place], [place] [phone] documented as of this encounter Visit Diagnoses Not on filedocumented in this encounter Additional Health Concerns Assessment Noted Time PHQ-9 Depression Total Score: 2 02/18/20 22 3:23 PM CDT documented as of this encounter Care Teams Insurance Follow Up Specialist Relationship Specialty Start Date End Date Morelia Oh NP PCP - General 10/07/15 Clinton Palomino MD Three [facility]. [address] [place] [address] [place] Second Floor Operator INTERVENTIONAL CARDIOLOGY 05/30/19 documented as of this encounter
--- OUTSIDE RECORDS SUMMARY | 2025-03-03 13:53 | XMS_ITS | Encounter Summary ---
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 [facility] [address] [place], [place] [phone] documented as of this encounter Procedures Procedure Name Priority Date/Time Associated Diagnosis Comments BASIC METABOLIC PANEL Routine 03/23/2018 documented in this encounter Results * BASIC METABOLIC PANEL (03/23/2018) SODIUM S/P/B 143 POTASSIUM S/P/B 4.0 CO2 23 CHLORIDE S/P/B 102 GLUCOSE 99 mg/dL BUN 12 CREATININE S/P/B 0.9 0.7 - 1.3 03/23/2018 us Doc [facility] LABORATORY Final Result documented in this encounter Visit Diagnoses Not on filedocumented in this encounter Care Teams Billiard Table Mechanic Relationship Specialty Start Date End Date Morelia Oh NP PCP - General 10/07/15 Tico Gabriel MD [place] Paper Tube Cutter CARDIOVASCULAR DISEASE 10/07/15 05/29/19 Clinton Palomino MD [facility] [address] [place] [address] [place] Paper Tube Cutter INTERVENTIONAL CARDIOLOGY 05/30/19 documented as of this encounter
--- OUTSIDE RECORDS SUMMARY | 2025-03-03 13:53 | XMS_ITS | Encounter Summary ---
Author Organization [facility] Address [facility]ly [facility] [place] [address] Care Team Providers Care Allergy And Immunology Chief Name Role Phone Adriano Morelia Cabello NP Primary Care Provider [phone] Clinton Palomino MD Unavailable [phone] Encounter Details Date Type Department Care Team (Late Contact Info) Description 08/29/2022 [facility] Onsite Message Enc [facility] Medical Group Family and Sports Medicine - [address] [place] [address] [place], [facility] Provider Appointment Social History Tobacco Use Types Packs/Day Years [...] 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 [address] [place], [place] [address] documented as of this encounter Visit Diagnoses Not on filedocumented in this encounter Additional Health Concerns Assessment Noted Time PHQ-9 Depression Total Score: 2 02/18/20 22 3:23 PM CDT documented as of this encounter Care Teams Allergy And Immunology Chief Relationship Specialty Start Date End Date Morelia Oh NP PCP - General 10/07/15 Clinton Palomino MD [facility] [address] [place] [address] [place] Teletypesetter Monitor INTERVENTIONAL CARDIOLOGY 05/30/19 documented as of this encounter
--- OUTSIDE RECORDS SUMMARY | 2025-03-03 13:53 | XMS_ITS | Encounter Summary ---
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 [address] [place], [place] [phone] documented as of this encounter Visit Diagnoses Not on filedocumented in this encounter Additional Health Concerns Assessment Noted Time PHQ-9 Depression Total Score: 2 02/18/20 22 3:23 PM CDT documented as of this encounter Care Teams Meter Tester Primary Relationship Specialty Start Date End Date Morelia Oh NP PCP - General 10/07/15 Clinton Palomino MD Three [facility]. [address] [place] [address] [place] Front Desk Monitor INTERVENTIONAL CARDIOLOGY 05/30/19 documented as of this encounter
--- OUTSIDE RECORDS SUMMARY | 2025-03-03 13:53 | XMS_ITS | Encounter Summary ---
Author Organization [facility] Address [facility] [place] [address] Care Team Providers Care Customs Entry Clerk Name Role Phone Morelia Oh PRODUCT PROMOTER SALES PERSON Primary Care Provider [phone] Clinton Palomino MD Unavailable [phone] Encounter Details Date Type Department Care Team ([facility] Contact Info) Description 12/14/2021 MyChart Message Enc [facility] Family and Sports Medicine - [place] [address] [place] [address] Morelia Oh, PRODUCT PROMOTER SALES PERSON [address] [place] [address] New sleep med Social History Tobacco Use Types Packs/Day Years [...] 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 No / Unsure 12/09/2021 8:55 AM CDT documented as of this encounter Plan of Treatment Upcoming Encounters Date Type Department Care Team (Late Contact Info) Description 03/02/2026 9:30 AM CDT Office Visit [facility] THREE [facility], [address] [place], [place] [id number] Clinton Palomino MD Three [facility]. [address] [place], [place] [id number] documented as of this encounter Visit Diagnoses Not on filedocumented in this encounter Additional Health Concerns Assessment Noted Time PHQ-9 Depression Total Score: 2 08/27/19 22 8:21 AM CDT documented as of this encounter Care Teams Customs Entry Clerk Relationship Specialty Start Date End Date Morelia Oh NP PCP - General 10/07/15 lCinton Palomino MD Three [facility]. [address] [place] [address] [place] General Inspector INTERVENTIONAL CARDIOLOGY 05/30/19 documented as of this encounter
--- OUTSIDE RECORDS SUMMARY | 2025-03-03 13:53 | XMS_ITS | Patient Health Record ---
Author Organization [facility] Address [address] [place], [place] [id number] Care Team Providers Care Reporting Developer Name Role Phone DESHAWN BLANCAS Unavailable [phone] Morelia Oh Unavailable Unavailable Reason For Referral No Information Social History Social History Additional Details Category Social Info Options Details Migrated Social History Migrated Social History Smoking Status : Never smoked , History of tobacco use : , Alcohol intake : Plan Of Treatment No Information Insurance Providers Payer Name Payer Address Payer Phone Subscriber Number Group Number Insured Name Patient Relationship to Insured Coverage Start Date Coverage End Date [employer] [address] [place], [place] [phone] [id number] BAILEY MCNEILL Self - patient is the insured
--- OUTSIDE RECORDS SUMMARY | 2025-03-03 13:53 | XMS_ITS | Encounter Summary ---
Author Organization [facility] Address [facility] [place] [address] Care Team Providers Care Glass Decorator Name Role Phone Morelia Oh PAIN MEDICINE PHYSICIAN Primary Care Provider [phone] Clinton Palomino MD Unavailable [phone] Encounter Details Date Type Department Care Team ([facility] Contact Info) Description 02/23/2022 MyChart Message Enc [facility] Family [facility] Sports Medicine - [place] [address] [place] [address] Morelia Oh, PAIN MEDICINE PHYSICIAN [address] [place] [address] Endo Follow Up Social History Tobacco Use Types Packs/Day Years [...] 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 No / Unsure 02/22/2022 10:00 AM CDT documented as of this encounter Plan of Treatment Upcoming Encounters Date Type Department Care Team (Late Contact Info) Description 03/02/2026 9:30 AM CDT Office Visit [facility], [address] [place] [address] Clinton Palomino MD Three [facility]. [address] [place], [place] [id number] documented as of this encounter Visit Diagnoses Not on filedocumented in this encounter Additional Health Concerns Assessment Noted Time PHQ-9 Depression Total Score: 2 02/18/20 22 3:23 PM CDT documented as of this encounter Care Teams Glass Decorator Relationship Specialty Start Date End Date Morelia Oh NP PCP - General 10/07/15 Clinton Palomino MD Three [facility]. [address] [place] [address] [place] Editorial Project Manager INTERVENTIONAL CARDIOLOGY 05/30/19 documented as of this encounter
--- OUTSIDE RECORDS SUMMARY | 2025-03-03 13:54 | XMS_ITS | Encounter Summary ---
Author Organization [facility] Address [facility] [place] [address] Care Team Providers Care Museum Preparator Name Role Phone Adriano Morelia Cabello NP Primary Care Provider [phone] Clinton Palomino MD Unavailable [phone] Encounter Details Date Type Department Care Team (Late st Contact Info) Description 02/13/2023 [employer] Message Enc [facility] THREE [facility], [address] [place] [address] Clinton Palomino MD Three [facility]. 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 Patient will see what that shows before making further changes. * Ginna Montero NP - 02/14/2023 9:48 AM CDT We can proceed with the CCS as scheduled - this will provide us with great information If there is enough to be concerned with your reported symptoms then we can proceed with stress - * Chuyita Flynn RN - 02/14/2023 8:40 AM CDT . documented in this encounter Plan of Treatment Upcoming Encounters Date Type Department Care Team (Late st Contact Info) Description 03/02/2026 9:30 AM CDT Office Visit [facility] [address], [address] [place] [address] Clinton Palomino MD [address] [place] [address] documented as of this encounter Visit Diagnoses Not on filedocumented in this encounter Additional Health Concerns Assessment Noted Time PHQ-9 Depression Total Score: 2 09/14/19 23 10:49 AM CDT documented as of this encounter Care Teams Museum Preparator Relationship Specialty Start Date End Date Morelia Oh NP PCP - General 10/07/15 Clinton Palomino MD [address] [place] [address] [place] Account Supervisor INTERVENTIONAL CARDIOLOGY 05/30/19 documented as of this encounter
--- OUTSIDE RECORDS SUMMARY | 2025-03-03 13:54 | XMS_ITS | Encounter Summary ---
Author Organization [facility] Address [facility] [place] [address] Care Team Providers Care Loans Consultant Name Role Phone Adriano Morelia Cabello NP Primary Care Provider [phone] Clinton Palomino MD Unavailable [phone] Encounter Details Date Type Department Care Team (Late st Contact Info) Description 07/05/2023 [employer] Message Enc [facility] THREE [facility], [address] [place] [address] Clinton Palomino MD Three [facility]. 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 [address] [place] [address] documented as of this encounter Visit Diagnoses Not on filedocumented in this encounter Additional Health Concerns Assessment Noted Time PHQ-9 Depression Total Score: 2 09/14/19 23 10:49 AM CDT documented as of this encounter Care Teams Loans Consultant Relationship Specialty Start Date End Date Morelia Oh NP PCP - General 10/07/15 Clinton Palomino MD [facility]. [address] [place] [address] [place] Restaurant Supervisor INTERVENTIONAL CARDIOLOGY 05/30/19 documented as of this encounter
--- OUTSIDE RECORDS SUMMARY | 2025-03-03 13:54 | XMS_ITS | Encounter Summary ---
Author Organization [facility] Address [facility] [place] [address] Care Team Providers Care Flow Specialist Name Role Phone Morelia Oh NP Primary Care Provider [phone] Clinton Palomino MD Unavailable [phone] Encounter Details Date Type Department Care Team (Late st Contact Info) Description 02/11/2023 [employer] Leaderst Message Enc [facility] Family and Sports Medicine - [place] [address] [place] [address] Morelia Oh, EXTRUDER [address] [place] [address] Testosterone Social History Tobacco Use Types Packs/Day Years [...] Industry Job Start Date Job End Date [employer] Not on file Not on file Not on file documented as of this encounter Progress Notes * Nidia Mcintyre MA - 02/13/2023 9:57 AM CDT Referral canceled. * Morelia Oh NP - 02/13/2023 9:46 AM CDT Urology documented in this encounter Plan of Treatment Upcoming Encounters Date Type Department Care Team (Late st Contact Info) Description 03/02/2026 9:30 AM CDT Office Visit [facility] THREE [facility], [address] [place], [place] [id number] Clinton Palomino MD Three [facility]. [address] [place], [place] [id number] documented as of this encounter Visit Diagnoses Not on filedocumented in this encounter Additional Health Concerns Assessment Noted Time PHQ-9 Depression Total Score: 2 09/14/19 23 10:49 AM CDT documented as of this encounter Care Teams Flow Specialist Relationship Specialty Start Date End Date Morelia Oh NP PCP - General 10/07/15 Clinton Palomino MD Three [facility]. [address] [place], [place] [address] [place] Residential Roofer Helper INTERVENTIONAL CARDIOLOGY 05/30/19 documented as of this encounter
--- OUTSIDE RECORDS SUMMARY | 2025-03-03 13:54 | XMS_ITS | Data Portability ---
Author Organization [facility] [place],, [address] [place] [address] Office Address [address] [place] [address] [place] [id number] Assessment Encounter Date Assessment Date Assessment LastModified by Organization Details LastModified Time 05/15/2024 05/15/2024 This note and documentation is not a direct quotation of the discussion between the patient and medical provider and as such will contain standard phrases and summarizations of care. This note was written as patient medical documentation and as communication tool between healthcare providers and may contain technical language, terminology, and abbreviations that are difficult to interpret without advanced medical training. If you have questions or concerns regarding what is written in this note, please contact our office. Total time spent on the date of service preparing for, seeing the patient, and completing the documentation was 35 minutes. [email or web address] Not available 08/07/2024 11:50:36 06/12/2024 06/12/2024 This note and documentation is not a direct quotation of the discussion between the patient and medical provider and as such will contain standard phrases and summarizations of care. This note was written as patient medical documentation and as communication tool between healthcare providers and may contain technical language, terminology, and abbreviations that are difficult to interpret without advanced medical training. If you have questions or concerns regarding what is written in this note, please contact our office. Total time spent on the date of service preparing for, seeing the patient, and completing the documentation was 35 minutes. [email or web address] Not available 08/07/2024 12:00:21 07/17/2024 07/17/2024 This note and documentation is not a direct quotation of the discussion between the patient and medical provider and as such will contain standard phrases and summarizations of care. This note was written as patient medical documentation and as communication tool between healthcare providers and may contain technical language, terminology, and abbreviations that are difficult to interpret without advanced medical training. If you have questions or concerns regarding what is written in this note, please contact our office. Total time spent on the date of service preparing for, seeing the patient, and completing the documentation was 35 minutes. [email or web address] Not available 08/07/2024 12:11:38 08/14/2024 08/14/2024 This note and documentation is not a direct quotation of the discussion between the patient and medical provider and as such will contain standard phrases and summarizations of care. This note was written as patient medical documentation and as communication tool between healthcare providers and may contain technical language, terminology, and abbreviations that are difficult to interpret without advanced medical training. If you have questions or concerns regarding what is written in this note, please contact our office. Total time spent on the date of service preparing for, seeing the patient, and completing the documentation was 35 minutes. [email or web address] Not available 08/14/2024 23:27:18 12/04/2024 12/04/2024 This note and documentation is not a direct quotation of the discussion between the patient and medical provider and as such will contain standard phrases and summarizations of care. This note was written as patient medical documentation and as communication tool between healthcare providers and may contain technical language, terminology, and abbreviations that are difficult to interpret without advanced medical training. If you have questions or concerns regarding what is written in this note, please contact our office. Total time spent on the date of service preparing for, seeing the patient, and completing the documentation was 35 minutes. Not available 12/04/2024 17:08:42 Plan of Treatment Reminders Order Date Submit Date Provider Last Modified By Organization Details Last Modified Time Details Appointments None recorded. Lab None recorded. Referral neurologica l surgeon referral 2024 [email or web address], [address], 12:34:19 physical therapist referral - [facility] TO SURAL NERVE AND POSTERIOR CALF. Decrease pain and edema. Increase ROM to bilateral lower extremities and increase strength to bilateral lower extremity. 2024 025 [email or web address] [facility], [address], [address], [address], 12:34:20 Procedures None recorded. Surgeries None recorded. Imaging electromyog felix + nerve conduction study - Bilateral lower extremity 2024 025 [email or web address] 96 [facility]erve Condution Scheduling, [address] , [place], [address], 08:37:02 Medication Orders None recorded. Patient TargetsNo targets recorded. Patient InstructionsNo instructions recorded. Reason for Referral Neurological Surgeon Referra l for Entrapment of sural nerve Referring Physician: Carisa Henning Podiatrbharath, Encounter Date: 12/04/2024 Physical Therapist Referral for Entrapment of sural nerve [facility]ONE[facility]ING [facility] TO SURAL NERVE AND POSTERIOR CALF.Decrease pain and edema. Increase ROM to bilateral lower extremities and increase strength to bilateral lower extremity. Referring Physician: Umang Pitts, Encounter Date: 12/04/2024 Results Created Date Observation Date Name Description Value Unit Range Abnormal Flag Note LastModifiedBy Organization Detail LastModifiedTime 09/05/19 25 08/14/2024 elect romyo gram + nerve condu ction study No observ ation record ed. [email or web address] [facility] Condution Scheduling [address] , [place], [address], 09/05/2024 11:26:05 Result Notes None recorded. Problems Name Problem SNOMED Code Status Onset Date Resolution Date Notes Provider Name and Address Organization Details Recorded Time Pain in left foot 077071015190 107 Active 2022 Carisa Henning, CYN [address] [facility],[address], [place], [address] [place] [address] [facility] [place], 5 11:59:14 Plantar fasciitis 446032831 Completed 202208/07/[address]24 [address] Hen[address] DPM [address] [facility],[address], [place], [address], [facility] [place], 5 11:51:00 Equinus contractu re of the ankle 315858875 Active 2022 Carisa Henning DPM [address] [facility],[address], [place], [address], [facility] [place], 3 12:23:41 Congenita l pes cavus of left foot 103085912981 29930 Active 2022 Carisa Henning DPM [address] [facility],[address], [place], [address], [facility] [place], 3 12:24:27 Equinus contractu re of the ankle 003985238 Active 2022 Carisa Henning DPM [address] [facility],[address], [place], [address], [facility] [place], 4 10:12:39 Pain in bilateral feet 874197177474 49117 Active 2022 Carisa Henning DPM [address] [facility],[address], [place], [address], [facility] [place], 5 11:59:25 Bursitis of foot region 553246798 Active 2022 Carisa Henning DPM [address] [facility],[address], [place], [address], [facility] [place], 4 10:12:37 Bilateral foot congenita l pes cavus 412350050473 77861 Active 2023 Carisa Henning, CYN [address] [facility],[address], [place], [address], [facility] [place], 4 10:12:34 Stress fracture of left calcaneus 913051753237 09770 Completed 202308/14/2024 Carisa Henning, CYN [address] [facility],[address], [place], [address], [facility] [place], 5 23:27:34 Bursitis of left foot 222661346695 88725 Active 2023 Carisa Henning DPM [address] [facility],[address], [place], [address], [facility] [place], 4 13:54:44 Left Achilles tendiniti s 778153640307 102 Active 2023 Carisa Henning DPM [address] [facility],[address], [place], [address], [facility] [place], 4 12:12:22 Bursitis of right foot 240600468087 81333 Active 2023 Carisa Henning DPM [address] [facility],[address], [place], [address], [facility] [place], 4 10:03:39 Right Achilles tendiniti s 464933022925 102 Active 2023 Carisa Henning DPM [address] [facility],[address], [place], [address], [facility] [place], 4 10:12:54 Postopera tive pain 947352193 Completed 202308/07/2024 Carisa Henning DPM [address] [facility],[address], [place], [address], [facility] [place], 5 11:51:32 Peroneal tendiniti s 72079341 Active 2023 Carisa Henning, CYN [address] [facility],[address], [place], [address], [facility] [place], 4 14:47:03 Closed fracture of base of fifth metatarsa l bone 102317663 Completed 202308/14/2024 Carisa Henning, CYN [address] [facility],[address], [place], [address], [facility] [place], 5 23:27:30 Sural neuropath y 484189148 Active 2024 Carisa Henning, CYN [address] [place] [address],[address], [place], [address], [facility] [place], 5 11:52:20 Pain of joint of ankle and/or foot 534676484 Active 2024 Carisa Henning, CYN [address] [facility],[address], [place], [address], [facility] [place], 5 12:11:52 Vitamin B deficienc y 25995270 Active 2024 Carisa Henning, CYN [address] [facility],[address], [place], [address], [facility] [place], 5 13:47:04 Vitamin D deficienc y 17138867 Active 2024 Carisa Henning, CYN [address] [facility],[address], [place], [address], [facility] [place], 5 13:47:09 Prediabet es 626988457 Active 2024 Carisa Henning DPM [address] [facility],[address], [place], [address], [facility] [place], 5 13:47:49 Thyroid dysfuncti on 334124610 Active 2024 Carisa Henning DPM [address] [facility],[address], [place], [address], [facility] [place], 5 13:48:17 Entrapmen t of sural nerve Active 2024 Carisa Henning DPM [address] [facility],[address], [place], [address], [facility] [place], 5 16:41:10 Problem Notes None recorded. Procedures Surgical History Date Name Laterality Status Provider Name and Address Organization Details Recorded Time 5 Foot X-ray 3 Views completed Carisa Henning DPM [address] [facility],[address], [place], [address], [facility] [place], 08/07/2024 12:11:33 5 Foot X-ray 3 Views completed Carisa Henning DPM [address] [facility],[address], [place], [address], [facility] [place], 08/07/2024 11:57:35 5 Steroid Injection completed Carisa Henning DPM [address] [facility],[address], [place], [address], [facility] [place], 08/07/2024 11:54:22 5 Foot X-ray 3 Views completed Carisa Henning DPM [address] [facility],[address], [place], [address], [facility] [place], 08/07/2024 11:49:56 4 FASCIECTOMY, PLANTAR FASCIA (SURG) completed [facility] [place], 02/29/2024 12:33:51 4 Foot X-ray 3 Views completed Carisa Henning DPM [address] [facility],[address], [place], [address], [facility] [place], 10/23/2023 10:15:26 4 Foot Strapping completed Carisa Henning DPM [address] [facility],[address], [place], [address], [facility] [place], 06/26/2023 10:01:51 3 Foot Strapping completed Carisa Henning DPM [address] [facility],[address], [place], [address], [facility] [place], 02/23/2023 12:23:30 3 Foot X-ray 3 Views completed Carisa Henning DPM [address] [facility],[address], [place], [address], [facility], 01/26/2023 12:17:11 procedure on kidney completed [facility] [place], 01/26/2023 12:25:31 revision of plantar fasciectomy completed [facility] [place], 01/26/2023 12:25:55 Imaging Results None recorded. Procedure Notes None recorded. Medical Equipment None Reported. Allergies Allergen ID Allergen Name Allergen Category Reaction Reaction Severity Criticality Documentation Date Start Date Code Code System Note Provider Name and Address Organization Details Recorded Time 73676 ciproflox acin medicatio n rash Not available high 12/04/20242020 2551 RxNorm Stiff neck Carisa Henning DPM [address] [facility], [place], [address], [facility] [place], 5 14:18:04 12441 hydralazi ne medicatio n rash Not available [facility] 12/04/20242020 5470 RxNorm Carisa Henning, DPM [address] [facility],[address], [place], [address] [place] [address] [facility] [place], 5 14:18:11 6915 Cipro medicatio n Not available Not available Not available 01/26/202320575 3 RxNorm Vernoica Rocha [facility] [place], 3 12:23:30 Medications Name Sig Start Date Stop Date Status Note LastModified by Organization Details LastModified Time amoxicillin 500 mg capsule TAKE 1 CAPSULE BY MOUTH THREE TIMES A DAY 06/12 completed Not Available Not Available Not Available anastrozole 1 mg tablet TAKE 1 TABLET BY MOUTH ONCE WEEKLY 06/12 completed Not Available Not Available Not Available prednisone 10 mg tablet PLEASE SEE ATTACHED FOR DETAILED DIRECTION S active Not Available Not Available No t Available doxycycline hyclate 100 mg capsule TAKE 1 CAPSULE BY MOUTH TWICE A DAY FOR 10 DAYS active Not Available Not Available No t Available atorvastati n 20 mg tablet TAKE 1 TABLET BY MOUTH NIGHTLY AT BEDTIME active Not Available Not Available No t Available trazodone 50 mg tablet TAKE 1 TABLET (50 MG TOTAL) BY MOUTH NIGHTLY AT BEDTIME FOR 30 DAYS. 06/22 completed Not Available Not Available Not Available azithromyci n 250 mg tablet TAKE 2 TABLETS BY MOUTH TODAY, THEN TAKE 1 TABLET DAILY FOR 4 DAYS DIRECTED 06/12 completed Not Available Not Available Not Available tizanidine 4 mg tablet TAKE 1 TABLET BY MOUTH EVERY 8 HOURS NEEDED FOR MUSCLE SPASMS/PA IN FOR 30 DAYS 06/12 completed Not Available Not Available Not Available valacyclovi r 1 gram tablet TAKE 1 TABLET BY MOUTH TWICE A DAY active Not Available Not Available No t Available tretinoin 0.025 % topical cream APPLY A PEA SIZE AMOUNT TO FACE AT BEDTIME TOLERATED . FOLLOW WITH [facility]. 12/04 completed Not Available Not Available Not Available meloxicam 15 mg tablet TAKE 1 TABLET BY MOUTH EVERY DAY WITH A MEAL FOR 30 DAYS 06/22 completed Not Available Not Available Not Available alendronate 70 mg tablet TAKE 1 TABLET BY MOUTH EVERY WEEK 06/12 completed Not Available Not Available Not Available prednisone 5 mg tablet TAKE 1 TABLET BY MOUTH EVERY DAY FOR 5 DAYS 06/22 completed Not Available Not Available Not Available clobetasol 0.05 % topical cream APPLY TO AFFECTED AREA TWICE A DAY FOR 1-2 WEEKS 12/04 completed Not Available Not Available Not Available valsartan 80 mg tablet TAKE 1 TABLET BY MOUTH EVERY DAY active Not Available Not Available No t Available sulfamethox azole 800 mg-trimetho prim 160 mg tablet TAKE 1 TABLET BY MOUTH TWICE A DAY active Not Available Not Available No t Available omeprazole 40 mg capsule,del ayed release active Not Available Not Available Not Available tramadol 50 mg tablet TAKE 1 TABLET EVERY 8 HOURS BY ORAL ROUTE FOR 7 DAYS, FOR PAIN. 06/12 completed Not Available Not Available Not Available ketorolac 10 mg tablet TAKE 1 TABLET BY MOUTH EVERY 6 HOURS NEEDED FOR PAIN. active Not Available Not Available No t Available prednisone 10 mg tablets in a dose pack START 60 MG TODAY AND DECREASE BY ONE TABLET EACH DAY UNTIL COMPLETE. 01/26 completed Not Available Not Available Not Available oxycodone-a cetaminophe n 10 mg-325 mg tablet TAKE 1 TABLET EVERY 8 HOURS BY ORAL ROUTE WITH MEAL(S) FOR 7 DAYS, FOR PAIN. 06/12 completed Not Available Not Available Not Available tamsulosin 0.4 mg capsule TAKE 1 CAPSULE BY MOUTH EVERY DAY active Not Available Not Available No t Available dexamethaso ne 1 mg tablet TAKE 1 TABLET (1 MG TOTAL) BY MOUTH ONCE FOR 1 DOSE. FOR TESTING 06/12 completed Not Available Not Available Not Available amlodipine 10 mg tablet TAKE 1 TABLET (10 MG TOTAL) BY MOUTH DAILY FOR 5 DAYS. 5 DAY MAIL GAP active Not Available Not Available No t Available mirtazapine 15 mg tablet TAKE 1 TABLET BY MOUTH NIGHTLY AT BEDTIME. 06/12 completed Not Available Not Available Not Available gabapentin 100 mg capsule TAKE 1 CAPSULE (100 MG TOTAL) BY MOUTH THREE TIMES DAILY. 12/04 completed Not Available Not Available Not Available metoprolol succinate ER 25 mg tablet,exte nded release 24 hr TAKE 1 TABLET (25 MG TOTAL) BY MOUTH DAILY. active Not Available Not Available No t Available cefuroxime axetil 500 mg tablet TAKE 1 TABLET BY MOUTH TWICE A DAY 06/12 completed Not Available Not Available Not Available lisinopril 40 mg tablet TAKE 1 TABLET BY MOUTH EVERY DAY 06/12 completed Not Available Not Available Not Available ondansetron 4 mg disintegrat ing tablet TAKE 1 TABLET BY MOUTH EVERY 8 HOURS NEEDED FOR NAUSEA active Not Available Not Available No t Available cefdinir 300 mg capsule TAKE 2 CAPSULES BY MOUTH DAILY. 06/12 completed Not Available Not Available Not Available amoxicillin 875 mg-potassiu m clavulanate 125 mg tablet TAKE 1 TABLET BY MOUTH TWICE A DAY 06/12 completed Not Available Not Available Not Available nabumetone 500 mg tablet TAKE 1 TABLET BY MOUTH TWICE A DAY 06/12 completed Not Available Not Available Not Available cholecalcif raza (vitamin D3) 1,250 mcg (50,000 unit) capsule TAKE 1 CAPSULE BY MOUTH ONE TIME PER WEEK 06/12 completed Not Available Not Available Not Available testosteron e 20.25 mg/1.25 gram per pump act.(1.62 %) transdermal gel APPLY 3 PUMPS DAILY DIRECTED 06/12 completed Not Available Not Available Not Available Xyosted 100 mg/0.5 mL subcutaneou s auto-inject or INJECT 100mg SUBCUTANE OUSLY EVERY WEEK active Not Available Not Available No t Available Xyosted 75 mg/0.5 mL subcutaneou s auto-inject or inject 75mg UNDER THE SKIN WEEKLY 06/12 completed Not Available Not Available Not Available EB-S4 400 mg-83.3 mcg-166.7 mg capsule 1 PO TID 06/12 completed Not Available Not Available Not Available Vitals Date Recorded Body height Body mass index (BMI) Body weight Heart rate Oxygen saturation Oxygen saturation in Arterial blood by Pulse oximetry Body temperature Pain severity - 0-10 verbal numeric rating [Score] - Reported Systolic And Diastolic Provider Name and Address Organization Details Last Updated DateTime 5 175.26 cm 35.4 kg/m2 510775. 17 g 83 /min 98 % 98 % 98.2 [degF] 6 145/53 mm[Hg] [facility] [place], 5 14:19:36 Date Recorded Body height Provider Name an d Address Organization Details Last Updated DateTime 06/12/2024 175.26 cm Veronica Rocha [facility] [place], 06/12/2024 14:27:02 Date Recorded Body height Heart rate Oxygen saturation Oxygen saturation in Arterial blood by Pulse oximetry Body temperature Systolic And Diastolic Provider Name and Address Organization Details Last Updated DateTime 175.26 cm 76 /min 98 % 98 % 97.9 [degF] 118/78 mm[Hg] Keya Alfredo [facility], 5 16:05:40 Social History Question Answer Notes LastModified by Jocoos ion Details LastModified Time Tobacco Smoking Status Never Smoker Veronica Rocha [facility], 01/26/2023 12:24:53 Do You Have An Advance Directive? Yes Information not available 01/26/2023 Are You Blind Or Do You Have Difficulty Seeing? No Information not available 09/29/2023 Are You Deaf Or Do You Have Serious Difficulty Hearing? No [email or web address] Information not available 09/29/2023 How Many Times Per Week Do You Exercise? 3-4 Times Per Week [email or web address] Information not available 01/26/2023 Do You Have A Medical Power Of Certified Medical Technician Assistant? Yes [email or web address] Information not available 01/26/2023 What Was The Date Of Your Most Recent Tobacco Screening? 12/04/2024 Information not available 12/04/2024 Do You Have Difficulty Walking Or Climbing Stairs? No [email or web address] Information not available 09/29/2023 Sex: Unknown Functional Status Question Answer Note LastModified by Organizat ion Details LastModified Time Do you use any illicit or recreational drugs? No [email or web address] Information not available 01/26/2023 Do you or have you ever used any other forms of tobacco or nicotine? No [email or web address] Information not available 01/26/2023 What is your level of alcohol consumption? None [email or web address] Information not available 01/26/2023 Are you currently employed? Yes [email or web address] Information not available 01/26/2023 Are you able to walk independently without assistance or assistive devices? YESWOREST [email or web address] Information not available 09/29/2023 What is your occupation? [employer] [email or web address] Information not available 01/26/2023 What is your exercise level? Moderate [email or web address] Information not available 01/26/2023 Do you or have you ever used any nicotine-free cigarettes, vape, or chewing tobacco? No [email or web address] Information not available 12/04/2024 Mental Status Question Answer Note LastModified by Organization D etails LastModified Time Do you have difficulty concentrating, remembering or making decisions? No [email or web address] Information no t available 09/29/2023 Family History Relationship Description Onset Age of this Age Resolved Age Notes LastModified by Organization Details LastModified Time Unspecified Relation Arthritis Not available 12:24:01 Unspecified Relation Hypertensive disorder [email or web address] Not available 01/07 12:24:07 Medical History Condition Response Coronary Artery Disease N Gout N Emphysema N Depression N COPD N Blood Clots N Lung Disease N Pacemaker N Edema N Deep Vein Thrombosis N Varicose Veins N Restless Leg Syndrome N Arthritis N Cancer N Stroke N Leg or Foot Ulcers N Circulation Problems N Raynaud's Disease N High Cholesterol N Liver Disease N Rheumatoid Arthritis N Fibromyalgia N Foot Deformity N Kidney Disease N Anxiety N Artificial Joints N Thyroid Problems N Psoriatic Arthritis N Anemia N Back Pain N Mental Illness N Diabetes N Bleeding Disorder N Seizures/Epilepsy N AIDS/HIV N Asthma N Allergies N Peripheral Vascular Disease N Artificial Heart Valve N Hepatitis N Neuropathy N Heart Disease N Pulmonary Embolism N Hypertension Y Osteoporosis N Past Encounters Encounter ID Performer Location Encounter Start Date Encounter Closed Date Diagnosis/Indication Diagnosis SNOMED-CT Code Diagnosis ICD10 Code Diagnosis IMO Codes Diagnosis Note [id number] Carisa Henning DPM [address] [facility] Office [address] [facility] [address] [place] [id number] 01/26/2023 11:56:19 01/26/2023 12:44:29 Pain in left foot [id number] 96621 M79.672 The conditions , etiologies , options for care, treatment plan, and prognosis were discussed with the patient. Both conservati ve and surgical options for care were reviewed. Conservati velbharath I recommende d that they wear more supportive shoes with a stiff-sole , a toe box wide enough for their foot, more padding, and overall better fitting shoes. Discussed the benefits of over the counter and/or prescripti on orthotics and explained that orthotics increase shock absorption and that the use of orthotics may possibly delay, or even potentiall y deter, requiring surgery for their condition. Discussed the benefits of rest, stretching , home physical therapy, ice, changes in shoe gear, more supportive shoegear, injections , NSAIDs, orthotics, and foot strapping. A handout demonstrat ing the icing and home physical therapy stretching techniques was given to the patient at this visit. Answered all of patient's questions. The patient voiced understand ing of the condition, home care, and expected healing, and was happy with this treatment plan. They are to return to the office in 6 - 8 weeks if symptoms do not improve, otherwise on an as needed basis. Plantar fasciitis [id number] 003 M72.2 Equinus co ntracture of the ankle [id number] M24.572 Home exercise program discussed, demonstrat ed, and handout/Th eraband given. Congenital pes cavus of left foot [id number] Q66.72 [id number] Carisa Henning, DPDestiney [address] [place] [address] 02/23/2023 12:12:50 02/23/2023 12:38:18 Plantar fasciitis [id number] M72.2 Added heel padding to current orthotics. Pain in bi lateral feet [id number] 4569471 M79.671 M79.672 Patient's condition, etiologies , options for care, treatment plan, and prognosis were discussed with in detail. Both conservati ve and surgical options for care were reviewed. Mendy lion I reviewed possible therapeuti c options including home physical therapy, oral and injectable medication s, therapist managed therapy, and changes in shoe gear. Discussed proper shoe gear and choices in detail and a handout demonstrat ing the icing and home physical therapy stretching techniques was given to the patient at this visit. Answered all of patient's questions. Discussed the benefits of prescripti on orthotics with the patient and explained that functional orthotics increase shock absorption and may prolong, or even potentiall y deter, the potential of requiring surgery for their condition. I recommende d more supportive shoes, shoes with more padding, shoes with a deeper toe box, and better fitting shoes. Handout given for over the counter insoles and shoe brand informatio n. The patient voiced understand ing of the condition, home care, expected healing, and was happy with this treatment plan and is to return to the office in 6-8 weeks if symptoms do not improve, otherwise on an as needed basis. Equinus co ntracture of the ankle [id number] M24.572 M24.571 Reviewed night splint usage in detail. He brought his splint from home and the device was fitted for him today. Bursitis o f foot region [id number] M77.51 M77.52 Referral and informatio n given for Ramon Cook at [facility]. [id number] Carisa Henning DPM [address],[facility] [address] [address], [place] [address] 06/22/2023 14:25:23 06/22/2023 14:51:12 Pain in left foot [id number] 21615 M79.672 The conditions , etiologies , options for care, treatment plan, and prognosis were discussed with the patient. Both conservati ve and surgical options for care were reviewed. Conservati vely I recommende d that they wear more supportive shoes with a stiff-sole , a toe box wide enough for their foot, more padding, and overall better fitting shoes. Discussed the benefits of over the counter and/or prescripti on orthotics and explained that orthotics increase shock absorption and that the use of orthotics may possibly delay, or even potentiall y deter, requiring surgery for their condition. Discussed the benefits of rest, stretching , home physical therapy, ice, changes in shoe gear, more supportive shoegear, injections , NSAIDs, orthotics, and foot strapping. A handout demonstrat ing the icing and home physical therapy stretching techniques was given to the patient at this visit. Answered all of patient's questions. The patient voiced understand ing of the condition, home care, and expected healing, and was happy with this treatment plan. They are to return to the office in 6 - 8 weeks if symptoms do not improve, otherwise on an as needed basis. Plantar fasciitis [id number] 003 M72.2 Discussed condition in detail with Mehdi and I explained that many factors can contribute to this condition such as improper shoe gear, flat or high arches, long periods of standing, or high impact activities like running or jumping. Discussed conservati ve options of care, which include change of shoe gear, padding, rest, ice, massage, orthotics, and injections . I explained that surgical options are available if conservati ve treatments fail. Discussed surgical options and the risks of procedures which include, but are not limited to: infection, recurrence , no improvemen t, worsening of condition, loss of limb, chronic swelling, chronic pain, hardware failure, need for future surgery, or numbness. Recovery time, post op protocols including weightbear ing status, and pain levels were discussed with . understand s the recovery time for this procedure and was given an opportunit y to ask questions and understand s that there are no guarantees on the outcome of any medical procedure and acknowledg es that no guarantee has been made with regard to these procedures . All questions were answered to the best of my ability. We will pursue conservati ve therapy at this time. Discussed the benefits of prescripti on orthotics and I explained that functional orthotics increase shock absorption and may prolong, or even potentiall y deter, the potential of requiring surgery for their condition. I recommende d that they wear more supportive shoes, shoes with more padding, shoes with a deeper toe box, and better fitting shoes. was given verbal instructio ns on stretching techniques and given a handout today as well. They were instructed on avoiding poor non supportive shoegear and barefoot walking and they voiced understand ing. Congenital pes cavus of left foot [id number] Q66.72 Equinus co ntracture of the ankle [id number] M24.572 M24.571 Reviewed night splint usage in detail. He brought his splint from home and the device was fitted for him today. [id number] Carisa Henning, CYN [address] [facility] Office [address] [place] [address],[address] [place] [address] 07/13/2023 14:55:32 07/13/2023 15:52:07 Pain in bilateral feet [id number] M79.671 M79.672 Patient's condition, etiologies , options for care, treatment plan, and prognosis were discussed with in detail. Both conservati ve and surgical options for care were reviewed. Mendy lion I reviewed possible therapeuti c options including home physical therapy, oral and injectable medication s, therapist managed therapy, and changes in shoe gear. Discussed proper shoe gear and choices in detail and a handout demonstrat ing the icing and home physical therapy stretching techniques was given to the patient at this visit. Answered all of patient's questions. Discussed the benefits of prescripti on orthotics with the patient and explained that functional orthotics increase shock absorption and may prolong, or even potentiall y deter, the potential of requiring surgery for their condition. I recommende d more supportive shoes, shoes with more padding, shoes with a deeper toe box, and better fitting shoes. Handout given for over the counter insoles and shoe brand informatio n. The patient voiced understand ing of the condition, home care, expected healing, and was happy with this treatment plan and is to return to the office in 6-8 weeks if symptoms do not improve, otherwise on an as needed basis. Bursitis o f foot region [id number] M77.51 M77.52 Reviewed in detail the need to follow-up with seat builder for modificati on of orthotics. Equinus co ntracture of the ankle [id number] M24.572 M24.571 Reviewed night splint usage in detail. He brought his splint from home and the device was fitted for him today. Plantar fasciitis 323714 003 M72.2 Discussed condition in detail with Mehdi and I explained that many factors can contribute to this condition such as improper shoe gear, flat or high arches, long periods of standing, or high impact activities like running or jumping. Discussed conservati ve options of care, which include change of shoe gear, padding, rest, ice, massage, orthotics, and injections . I explained that surgical options are available if conservati ve treatments fail. Discussed surgical options and the risks of procedures which include, but are not limited to: infection, recurrence , no improvemen t, worsening of condition, loss of limb, chronic swelling, chronic pain, hardware failure, need for future surgery, or numbness. Recovery time, post op protocols including weightbear ing status, and pain levels were discussed with . understand s the recovery time for this procedure and was given an opportunit y to ask questions and understand s that there are no guarantees on the outcome of any medical procedure and acknowledg es that no guarantee has been made with regard to these procedures . All questions were answered to the best of my ability. We will pursue conservati ve therapy at this time. Discussed the benefits of prescripti on orthotics and I explained that functional orthotics increase shock absorption and may prolong, or even potentiall y deter, the potential of requiring surgery for their condition. I recommende d that they wear more supportive shoes, shoes with more padding, shoes with a deeper toe box, and better fitting shoes. was given verbal instructio ns on stretching techniques and given a handout today as well. They were instructed on avoiding poor non supportive shoegear and barefoot walking and they voiced understand ing. Bilateral foot congenital pes cavus [id number] Q66.71 Q66.72 Carisa Henning DPM [address],[facility] [address] [address], [place] [address] 10/04/2023 15:05:36 10/04/2023 15:41:33 Bilateral foot congenital pes cavus [id number] Q66.71 Q66.72 Reviewed in detail the nature of a cavus foot. Because of the high arch and excess amount of weight is placed on the ball and heel of the foot when standing. Cavus foot can lead to a variety of symptoms including pain and instabilit y of the foot. Discussed conservati ve options of care, which include change of shoe gear, padding, rest, ice, massage, orthotics, and injections . I explained that surgical options are available if conservati ve treatments fail. Discussed the risks of procedures which include, but are not limited to: infection, recurrence , no improvemen t, worsening of condition, loss of limb, chronic swelling, chronic pain, hardware failure, need for future surgery, or numbness. Recovery time, post op protocols including weightbear ing status, and pain levels were discussed and the patient understand s the recovery time for this procedure and was given an opportunit y to ask questions and understand s that there are no guarantees on the outcome of any medical procedure and acknowledg es that no guarantee has been made with regard to these procedures . All questions were answered to the best of my ability. We will pursue conservati ve therapy at this time. Discussed the benefits of prescripti on orthotics and I explained that functional orthotics increase shock absorption and may prolong, or even potentiall y deter, the potential of requiring surgery for their condition. I recommende d that they wear more supportive shoes, shoes with more padding, shoes with a deeper toe box, and better fitting shoes. They were instructed on avoiding poor non supportive shoegear and barefoot walking and they voiced understand ing. Bursitis o f foot region [id number] M77.51 M77.52 Offloaded foot with foam and gel heel padding. Handout given for OTC purchase of pads. Plantar fasciitis 20271208 003 M72.2 Reviewed condition in detail with Mehdi and I explained that many factors can contribute to this condition such as improper shoe gear, flat or high arches, long periods of standing, or high impact activities like running or jumping. Discussed conservati ve options of care, which include change of shoe gear, padding, rest, ice, massage, orthotics, and injections . I explained that surgical options are available if conservati ve treatments fail. Discussed surgical options and the risks of procedures which include, but are not limited to: infection, recurrence , no improvemen t, worsening of condition, loss of limb, chronic swelling, chronic pain, hardware failure, need for future surgery, or numbness. Recovery time, post op protocols including weightbear ing status, and pain levels were discussed with . understand s the recovery time for this procedure and was given an opportunit y to ask questions and understand s that there are no guarantees on the outcome of any medical procedure and acknowledg es that no guarantee has been made with regard to these procedures . All questions were answered to the best of my ability. We will pursue conservati ve therapy at this time. Discussed the benefits of prescripti on orthotics and I explained that functional orthotics increase shock absorption and may prolong, or even potentiall y deter, the potential of requiring surgery for their condition. I recommende d that they wear more supportive shoes, shoes with more padding, shoes with a deeper toe box, and better fitting shoes. He was given verbal instructio ns on stretching techniques and given a handout today as well. They were instructed on avoiding poor non supportive shoegear and barefoot walking and they voiced understand ing. Equinus co ntracture of the ankle [id number] M24.572 M24.571 Reviewed night splint usage in detail. He brought his splint from home and the device was fitted for him today. Pain in bi lateral feet [id number] 1095608 M79.671 M79.672 Patient's condition, etiologies , options for care, treatment plan, and prognosis were discussed with in detail. Both conservati ve and surgical options for care were reviewed. Mendy lion I reviewed possible therapeuti c options including home physical therapy, oral and injectable medication s, therapist managed therapy, and changes in shoe gear. Discussed proper shoe gear and choices in detail and a handout demonstrat ing the icing and home physical therapy stretching techniques was given to the patient at this visit. Answered all of patient's questions. Discussed the benefits of prescripti on orthotics with the patient and explained that functional orthotics increase shock absorption and may prolong, or even potentiall y deter, the potential of requiring surgery for their condition. I recommende d more supportive shoes, shoes with more padding, shoes with a deeper toe box, and better fitting shoes. Handout given for over the counter insoles and shoe brand informatio n. The patient voiced understand ing of the condition, home care, expected healing, and was happy with this treatment plan and is to return to the office in 6-8 weeks or sooner as needed. [id number] Carisa Henning DPM [address] [facility] Office [address] [facility],[address] [place] [address] 11/30/2023 11:36:05 11/30/2023 12:08:53 Pain in bilateral feet [id number] M79.671 M79.672 Patient's condition, etiologies , options for care, treatment plan, and prognosis were discussed with in detail. Both conservati ve and surgical options for care were reviewed. Mendy lion I reviewed possible therapeuti c options including home physical therapy, oral and injectable medication s, therapist managed therapy, and changes in shoe gear. Discussed proper shoe gear and choices in detail and a handout demonstrat ing the icing and home physical therapy stretching techniques was given to the patient at this visit. Answered all of patient's questions. Discussed the benefits of prescripti on orthotics with the patient and explained that functional orthotics increase shock absorption and may prolong, or even potentiall y deter, the potential of requiring surgery for their condition. I recommende d more supportive shoes, shoes with more padding, shoes with a deeper toe box, and better fitting shoes. Handout given for over the counter insoles and shoe brand informatio n. The patient voiced understand ing of the condition, home care, expected healing, and was happy with this treatment plan and is to return to the office in 6-8 weeks or sooner as needed. Plantar fasciitis [id number] 003 M72.2 Reviewed condition in detail with Mehdi and I explained that many factors can contribute to this condition such as improper shoe gear, flat or high arches, long periods of standing, or high impact activities like running or jumping. Discussed conservati ve options of care, which include change of shoe gear, padding, rest, ice, massage, orthotics, and injections . I explained that surgical options are available if conservati ve treatments fail. Discussed surgical options and the risks of procedures which include, but are not limited to: infection, recurrence , no improvemen t, worsening of condition, loss of limb, chronic swelling, chronic pain, hardware failure, need for future surgery, or numbness. Recovery time, post op protocols including weightbear ing status, and pain levels were discussed with . understand s the recovery time for this procedure and was given an opportunit y to ask questions and understand s that there are no guarantees on the outcome of any medical procedure and acknowledg es that no guarantee has been made with regard to these procedures . All questions were answered to the best of my ability. We will pursue conservati ve therapy at this time. Discussed the benefits of prescripti on orthotics and I explained that functional orthotics increase shock absorption and may prolong, or even potentiall y deter, the potential of requiring surgery for their condition. I recommende d that they wear more supportive shoes, shoes with more padding, shoes with a deeper toe box, and better fitting shoes. He was given verbal instructio ns on stretching techniques and given a handout today as well. They were instructed on avoiding poor non supportive shoegear and barefoot walking and they voiced understand ing. Equinus co ntracture of the ankle [id number] M24.572 M24.571 Reviewed night splint usage in detail. He brought his splint from home and the device was fitted for him today. Bursitis o f foot region [id number] M77.51 M77.52 Bilateral foot congenital pes cavus [id number] [id number] Q66.71 Q66.72 Reviewed in detail the nature of a cavus foot. Because of the high arch and excess amount of weight is placed on the ball and heel of the foot when standing. Cavus foot can lead to a variety of symptoms including pain and instabilit y of the foot. Discussed conservati ve options of care, which include change of shoe gear, padding, rest, ice, massage, orthotics, and injections . I explained that surgical options are available if conservati ve treatments fail. Discussed the risks of procedures which include, but are not limited to: infection, recurrence , no improvemen t, worsening of condition, loss of limb, chronic swelling, chronic pain, hardware failure, need for future surgery, or numbness. Recovery time, post op protocols including weightbear ing status, and pain levels were discussed and the patient understand s the recovery time for this procedure and was given an opportunit y to ask questions and understand s that there are no guarantees on the outcome of any medical procedure and acknowledg es that no guarantee has been made with regard to these procedures . All questions were answered to the best of my ability. We will pursue conservati ve therapy at this time. Discussed the benefits of prescripti on orthotics and I explained that functional orthotics increase shock absorption and may prolong, or even potentiall y deter, the potential of requiring surgery for their condition. I recommende d that they wear more supportive shoes, shoes with more padding, shoes with a deeper toe box, and better fitting shoes. They were instructed on avoiding poor non supportive shoegear and barefoot walking and they voiced understand ing. Left Achil les tendinitis [id number] 72064 M76.62 Right Achi lles tendinitis 8013823356 M76.61 [id number] Carisa Henning DPM [address] [facility] Office [address] [facility],[address] [place] [address] 01/25/2024 12:24:38 01/25/2024 13:01:45 Pain in left foot 7139175115 90394 M79.672 The conditions , etiologies , options for care, treatment plan, and prognosis were discussed with the patient. Both conservati ve and surgical options for care were reviewed. Conservati vely I recommende d that they wear more supportive shoes with a stiff-sole , a toe box wide enough for their foot, more padding, and overall better fitting shoes. Discussed the benefits of over the counter and/or prescripti on orthotics and explained that orthotics increase shock absorption and that the use of orthotics may possibly delay, or even potentiall y deter, requiring surgery for their condition. Discussed the benefits of rest, stretching , home physical therapy, ice, changes in shoe gear, more supportive shoegear, injections , NSAIDs, orthotics, and foot strapping. A handout demonstrat ing the icing and home physical therapy stretching techniques was given to the patient at this visit. Answered all of patient's questions. The patient voiced understand ing of the condition, home care, and expected healing, and was happy with this treatment plan. They are to return to the office after surgery. Stress fra cture of left calcaneus [id number] M84.375A Left calcaneal pain, bursitis, inflammati on with continued symptoms despite greater than 3 months of conservati ve therapy including but not limited to rest, ice, anti-infla mmatories, changes in orthotics, immobiliza tion. Concern for calcaneal stress fracture. Bursitis of left foot [id number] 7943815 M77.52 Plantar fasciitis 20271208 M72.2 Reviewed condition in detail with Mehdi and I explained that many factors can contribute to this condition such as improper shoe gear, flat or high arches, long periods of standing, or high impact activities like running or jumping. Discussed conservati ve options of care, which include change of shoe gear, padding, rest, ice, massage, orthotics, and injections . I explained that surgical options are available if conservati ve treatments fail. Discussed surgical options and the risks of procedures which include, but are not limited to: infection, recurrence , no improvemen t, worsening of condition, loss of limb, chronic swelling, chronic pain, hardware failure, need for future surgery, or numbness. Recovery time, post op protocols including weightbear ing status, and pain levels were discussed with . understand s the recovery time for this procedure and was given an opportunit y to ask questions and understand s that there are no guarantees on the outcome of any medical procedure and acknowledg es that no guarantee has been made with regard to these procedures . All questions were answered to the best of my ability. We will pursue conservati ve therapy at this time. Discussed the benefits of prescripti on orthotics and I explained that functional orthotics increase shock absorption and may prolong, or even potentiall y deter, the potential of requiring surgery for their condition. I recommende d that they wear more supportive shoes, shoes with more padding, shoes with a deeper toe box, and better fitting shoes. He was given verbal instructio ns on stretching techniques and given a handout today as well. They were instructed on avoiding poor non supportive shoegear and barefoot walking and they voiced understand ing. Left Achil les tendinitis [id number] 96819 M76.62 Equinus co ntracture of the ankle 754065880 M24.572 M24.571 Reviewed night splint usage in detail. He brought his splint from home and the device was fitted for him today. [id number] Carisa Henning DPM [address],[facility] [address] [address], [place] [address] 02/13/2024 11:34:26 02/13/2024 12:27:20 Bilateral foot congenital pes cavus [id number] Q66.71 Q66.72 Reviewed in detail the nature of a cavus foot. Because of the high arch and excess amount of weight is placed on the ball and heel of the foot when standing. Cavus foot can lead to a variety of symptoms including pain and instabilit y of the foot. Discussed conservati ve options of care, which include change of shoe gear, padding, rest, ice, massage, orthotics, and injections . I explained that surgical options are available if conservati ve treatments fail. Discussed the risks of procedures which include, but are not limited to: infection, recurrence , no improvemen t, worsening of condition, loss of limb, chronic swelling, chronic pain, hardware failure, need for future surgery, or numbness. Recovery time, post op protocols including weightbear ing status, and pain levels were discussed and the patient understand s the recovery time for this procedure and was given an opportunit y to ask questions and understand s that there are no guarantees on the outcome of any medical procedure and acknowledg es that no guarantee has been made with regard to these procedures . All questions were answered to the best of my ability. We will pursue conservati ve therapy at this time. Discussed the benefits of prescripti on orthotics and I explained that functional orthotics increase shock absorption and may prolong, or even potentiall y deter, the potential of requiring surgery for their condition. I recommende d that they wear more supportive shoes, shoes with more padding, shoes with a deeper toe box, and better fitting shoes. They were instructed on avoiding poor non supportive shoegear and barefoot walking and they voiced understand ing. Bursitis of left foot 16 [id number] M77.52 Left Achil les tendinitis [id number] 94481 M76.62 Plantar fasciitis 511102 003 M72.2 Reviewed condition in detail with Mehdi and I explained that many factors can contribute to this condition such as improper shoe gear, flat or high arches, long periods of standing, or high impact activities like running or jumping. Discussed conservati ve options of care, which include change of shoe gear, padding, rest, ice, massage, orthotics, and injections . I explained that surgical options are available if conservati ve treatments fail. Discussed surgical options and the risks of procedures which include, but are not limited to: infection, recurrence , no improvemen t, worsening of condition, loss of limb, chronic swelling, chronic pain, hardware failure, need for future surgery, or numbness. Recovery time, post op protocols including weightbear ing status, and pain levels were discussed with . understand s the recovery time for this procedure and was given an opportunit y to ask questions and understand s that there are no guarantees on the outcome of any medical procedure and acknowledg es that no guarantee has been made with regard to these procedures . All questions were answered to the best of my ability. We will pursue conservati ve therapy at this time. Discussed the benefits of prescripti on orthotics and I explained that functional orthotics increase shock absorption and may prolong, or even potentiall y deter, the potential of requiring surgery for their condition. I recommende d that they wear more supportive shoes, shoes with more padding, shoes with a deeper toe box, and better fitting shoes. He was given verbal instructio ns on stretching techniques and given a handout today as well. They were instructed on avoiding poor non supportive shoegear and barefoot walking and they voiced understand ing. I discussed surgery in detail with the patient today. I discussed the risks of procedure which include, but are not limited to: infection, recurrence of condition, no improvemen t, worsening of condition, loss of limb, chronic swelling, chronic pain, need for future surgery, and/or numbness. Recovery time, post op protocols including weightbear ing status, and pain levels were discussed with the patient. They understand the recovery time for these procedures and were given an opportunit y to ask questions and they understand that there are no guarantees on the outcome of any medical procedure and they acknowledg e that no guarantee has been made with regard to these procedures . All questions were answered to the best of my ability; the patient would like to have a surgical correction performed and will be scheduled at their convenien e. A surgical packet was reviewed with patient and scanned into the chart, the original was given to the patient. Pain in bi lateral feet [id number] M79.671 M79.672 Patient's condition, etiologies , options for care, treatment plan, and prognosis were discussed with in detail. Both conservati ve and surgical options for care were reviewed. Mendy lion I reviewed possible therapeuti c options including home physical therapy, oral and injectable medication s, therapist managed therapy, and changes in shoe gear. Discussed proper shoe gear and choices in detail and a handout demonstrat ing the icing and home physical therapy stretching techniques was given to the patient at this visit. Answered all of patient's questions. Discussed the benefits of prescripti on orthotics with the patient and explained that functional orthotics increase shock absorption and may prolong, or even potentiall y deter, the potential of requiring surgery for their condition. I recommende d more supportive shoes, shoes with more padding, shoes with a deeper toe box, and better fitting shoes. Handout given for over the counter insoles and shoe brand informatio n. The patient voiced understand ing of the condition, home care, expected healing, and was happy with this treatment plan and is to return to the office in 6-8 weeks or sooner as needed. Bursitis o f right foot [id number] M77.51 [id number] Carisa Henning DPM [address] [facility] Office [address] [facility] [address] [place] [address] 02/29/2024 14:38:34 02/29/2024 15:27:51 Postoperative care [id number] Z48.89 Dressings were removed from the left lower extremity. Sutures left intact. Cleansed the patient's foot and dry sterile dressing was reapplied. They may begin to shower at this time but were instructed not to take a bath or soak the foot. They are to remove the dressing before the shower and then redress the area with a clean dressing after bathing. Post suture handout with instructio ns given. Post-opera tive course and post-opera tive instructio ns for home care were reviewed in detail. They are to be weight bearing as tolerated in a CAM boot. The patient voiced understand ing of the condition, home care, expected healing, and was happy with this treatment plan and is to return to the office in 10-14 days or sooner if problems or concerns arise. [id number] Carisa Henning DPM [address] [facility] Office [address] [facility] [address] [place] [address] 03/12/2024 12:33:42 03/12/2024 12:59:26 Postoperative care [id number] Z48.89 Shoe and sock were removed from the bilateral lower extremity. Sutures have been removed and the sites are well healed. Cleansed the patient's foot and sock and shoe was reapplied. They may continue to shower at this time but were reminded not to take a bath or soak the foot until the incision is fully healed. Post-opera tive course and post-opera tive instructio ns for home care were reviewed in detail. They are to be weight bearing as tolerated in tennis shoe/flat shoe. The patient voiced understand ing of the condition, home care, expected healing, and was happy with this treatment plan and is to return to the office in 2 weeks or sooner if problems or concerns arise. [id number] Carisa Henning DPM [address] [facility] Office [address] [place] [address] [place] [address] 04/01/2024 14:16:36 04/01/2024 14:59:02 Postoperative care [id number] Z48.89 Shoe and sock were removed from the bilateral lower extremity. Sutures have been removed and the sites are well healed. Cleansed the patient's foot and sock and shoe was reapplied. They may continue to shower at this time but were reminded not to take a bath or soak the foot until the incision is fully healed. Post-opera tive course and post-opera tive instructio ns for home care were reviewed in detail. They are to be weight bearing as tolerated in tennis shoe/flat shoe. The patient voiced understand ing of the condition, home care, expected healing, and was happy with this treatment plan and is to return to the office in 3 weeks or sooner if problems or concerns arise. [id number] Carisa Henning DPM [address] [place] [address] 04/24/2024 14:03:29 04/24/2024 14:49:23 Pain in bilateral feet [id number] [id number] 79.671 M79.672 Patient's condition, etiologies , options for care, treatment plan, and prognosis were discussed with in detail. Both conservati ve and surgical options for care were reviewed. Mendy lion I reviewed possible therapeuti c options including home physical therapy, oral and injectable medication s, therapist managed therapy, and changes in shoe gear. Discussed proper shoe gear and choices in detail and a handout demonstrat ing the icing and home physical therapy stretching techniques was given to the patient at this visit. Answered all of patient's questions. Discussed the benefits of prescripti on orthotics with the patient and explained that functional orthotics increase shock absorption and may prolong, or even potentiall y deter, the potential of requiring surgery for their condition. I recommende d more supportive shoes, shoes with more padding, shoes with a deeper toe box, and better fitting shoes. Handout given for over the counter insoles and shoe brand informatio n. The patient voiced understand ing of the condition, home care, expected healing, and was happy with this treatment plan and is to return to the office in 3 weeks. Stress fra cture of left calcaneus [id number] M84.375A Left calcaneal pain, bursitis, inflammati on with continued symptoms despite greater than 3 months of conservati ve therapy including but not limited to rest, ice, anti-infla mmatories, changes in orthotics, immobiliza tion. Will begin WBAT in CAM boot on left, ankle brace on right. Closed fra cture of base of fifth metatarsal bone [id number] S92.354D Peroneal tendinitis 5320 8009 M76.71 [id number] Carisa Henning, DPDestiney [address] [place] [address] 05/15/2024 14:03:17 05/15/2024 20:45:01 Stress fracture of left calcaneus [id number] 5184712 M84.375D Left calcaneal pain, bursitis, inflammati on with continued symptoms despite greater than 3 months of conservati ve therapy including but not limited to rest, ice, anti-infla mmatories, changes in orthotics, immobiliza tion. He is to wean out of the ankle brace on the right lower extremity at this time but continue to weight-joselito r as tolerated in the CAM boot on the left with heel padding. Bursitis of left foot 16 [id number] 3503077 M77.52 Pain in bi lateral feet [id number] 1164340 M79.671 M79.672 Patient's condition, etiologies , options for care, treatment plan, and prognosis were discussed with in detail. Both conservati ve and surgical options for care were reviewed. Mendy lion I reviewed possible therapeuti c options including home physical therapy, oral and injectable medication s, therapist managed therapy, and changes in shoe gear. Discussed proper shoe gear and choices in detail and a handout demonstrat ing the icing and home physical therapy stretching techniques was given to the patient at this visit. Answered all of patient's questions. Discussed the benefits of prescripti on orthotics with the patient and explained that functional orthotics increase shock absorption and may prolong, or even potentiall y deter, the potential of requiring surgery for their condition. I recommende d more supportive shoes, shoes with more padding, shoes with a deeper toe box, and better fitting shoes. Handout given for over the counter insoles and shoe brand informatio n. The patient voiced understand ing of the condition, home care, expected healing, and was happy with this treatment plan and is to return to the office in 3 weeks. Sural neuropathy [id number] G57.82 Patient's condition, etiologies , options for care, treatment plan, and prognosis were discussed with in detail. Both conservati ve and surgical options for care were reviewed. Discussed that the sural nerve is for sensation and contribute s to maintainin g balance. The sural nerve is commonly irritated postoperat ively secondary to dressings and the braces compressin g and irritating the nerve. Explained in detail that with decrease in his postoperat jack swelling, continue physical therapy, mobilizati on of his scar tissue, and weaning out of the bracing will more than likely help with the nerve. Offered injection today as well to help with inflammati on and irritation along the course of the nerve at the lateral left foot and ankle. He chose to have an injection today. [id number] Carisa Henning, CYN [address] [facility] Office [address] [facility] [place] [address] 06/12/2024 14:04:03 06/12/2024 14:53:48 Pain of joint of ankle and/or foot [id number] M25572 M25571 Patient's condition, etiologies , options for care, treatment plan, and prognosis were discussed with in detail. Both conservati ve and surgical options for care were reviewed. Tresati amisha I reviewed possible therapeuti c options including home physical therapy, oral and injectable medication s, therapist managed therapy, and changes in shoe gear. Discussed proper shoe gear and choices in detail and a handout demonstrat ing the icing and home physical therapy stretching techniques was given to the patient at this visit. Answered all of patient's questions. Discussed the benefits of prescripti on orthotics with the patient and explained that functional orthotics increase shock absorption and may prolong, or even potentiall y deter, the potential of requiring surgery for their condition. I recommende d more supportive shoes, shoes with more padding, shoes with a deeper toe box, and better fitting shoes. Handout given for over the counter insoles and shoe brand informatio n. The patient voiced understand ing of the condition, home care, expected healing, and was happy with this treatment plan and is to return to the office in 6 weeks. Closed fra cture of base of fifth metatarsal bone [id number] S92.354D Reviewed the fracture in detail with him today. Reviewed the phases of healing: Phase 1 includes reducing swelling and rest to protect the injured tissues. Phase 2 includes restoring range of motion and flexibilit y. Phase 3 includes gradually returning to activities that will not impair healing or promote further injury. This phase will include gradual return to normal activity for patient. time, 3-4 times a day. Ice can be using in conjunctio n with compressio n to keep swelling down. Answered all of patient's questions. Reviewed that swelling is normal at this time and may persist months until the foot is completely healed but will continue to decrease as he heals. Stress fra cture of left calcaneus [id number] M84.375D Left calcaneal pain, bursitis, inflammati on with continued symptoms despite greater than 3 months of conservati ve therapy including but not limited to rest, ice, anti-infla mmatories, changes in orthotics, immobiliza tion. He is to wean out of the ankle brace on the right lower extremity at this time but continue to weight-joselito r as tolerated in the CAM boot on the left with heel padding. Sural neuropathy 0204001 00 G57.82 Patient's condition, etiologies , options for care, treatment plan, and prognosis were discussed with in detail. Both conservati ve and surgical options for care were reviewed. Discussed that the sural nerve is for sensation and contribute s to maintainin g balance. The sural nerve is commonly irritated postoperat ively secondary to dressings and the braces compressin g and irritating the nerve. Explained in detail that with decrease in his postoperat jack swelling, continue physical therapy, mobilizati on of his scar tissue, and weaning out of the bracing will more than likely help with the nerve. Reviewed in detail treatment of the sural nerve with injection versus continued therapy and massage. At this time he would like to continue conservati ve therapy. Pain in bi lateral feet [id number] 0785644 M79.671 M79.672 [id number] Carisa Henning, CYN [address] [facility] Office [address] [facility] [place] [address] 07/17/2024 13:55:46 07/17/2024 14:35:42 Pain in bilateral feet [id number] 0156939 M79.671 M79.672 Pain of russ int of ankle and/or foot 258746084 M25.572 M25.571 Patient's condition, etiologies , options for care, treatment plan, and prognosis were discussed with in detail. Both conservati ve and surgical options for care were reviewed. Conservati velbharath I reviewed possible therapeuti c options including home physical therapy, oral and injectable medication s, therapist managed therapy, and changes in shoe gear. Discussed proper shoe gear and choices in detail and a handout demonstrat ing the icing and home physical therapy stretching techniques was given to the patient at this visit. Answered all of patient's questions. Discussed the benefits of prescripti on orthotics with the patient and explained that functional orthotics increase shock absorption and may prolong, or even potentiall y deter, the potential of requiring surgery for their condition. I recommende d more supportive shoes, shoes with more padding, shoes with a deeper toe box, and better fitting shoes. Handout given for over the counter insoles and shoe brand informatio n. The patient voiced understand ing of the condition, home care, expected healing, and was happy with this treatment plan and is to return to the office in 1 month. Closed fra cture of base of fifth metatarsal bone [id number] S92.354D Reviewed the fracture in detail with him today. Reviewed the phases of healing: Phase 1 includes reducing swelling and rest to protect the injured tissues. Phase 2 includes restoring range of motion and flexibilit y. Phase 3 includes gradually returning to activities that will not impair healing or promote further injury. This phase will include gradual return to normal activity for patient. time, 3-4 times a day. Ice can be using in conjunctio n with compressio n to keep swelling down. Answered all of patient's questions. Reviewed that swelling is normal at this time and may persist months until the foot is completely healed but will continue to decrease as he heals. Sural neuropathy [id number] 00 G57.82 Patient's condition, etiologies , options for care, treatment plan, and prognosis were discussed with in detail. Both conservati ve and surgical options for care were reviewed. Discussed that the sural nerve is for sensation and contribute s to maintainin g balance. The sural nerve is commonly irritated postoperat ively secondary to dressings and the braces compressin g and irritating the nerve. Explained in detail that with decrease in his postoperat jack swelling, continue physical therapy, mobilizati on of his scar tissue, and weaning out of the bracing will more than likely help with the nerve. Again reviewed in detail overloadin g of the extremitie s and compensati on secondary to surgical changes and pain. He continues to offload back-and-f orth to the lower extremitie s secondary to his gait changes and healing. Stressed importance of continued physical therapy for changes and improvemen t in gait mechanics. Stress fra cture of left calcaneus [id number] 5536097 M84.375D Calcaneal stress fracture appears fully healed at this time and he is to begin wearing well-padde d stable shoes as tolerated. Discussed returning to his previous orthotics but recommende d against this as his fu arch shape, function, and mechanics of change since the previous pair were molded. Did review using over-the-c ounter insoles and supportive shoes. He is also to begin increasing his activity as tolerated but not released to high impact activities like running or jumping. [id number] Carisa Henning DPM [address] [place] [address] 08/14/2024 14:02:34 08/14/2024 15:46:49 Sural neuropathy [id number] G57.82 Patient's condition, etiologies , options for care, treatment plan, and prognosis were discussed with in detail. Both conservati ve and surgical options for care were reviewed. Reviewed that the sural nerve is for sensation and contribute s to maintainin g balance. The sural nerve is commonly irritated postoperat ively secondary to dressings and the braces compressin g and irritating the nerve. Explained in detail that with decrease in his postoperat jack swelling, continue physical therapy, mobilizati on of his scar tissue, and weaning out of the bracing will more than likely help with the nerve. Again reviewed in detail overloadin g of the extremitie s and compensati on secondary to surgical changes and pain. He continues to offload back-and-f orth to the lower extremitie s secondary to his gait changes and healing. Stressed importance of continued physical therapy for changes and improvemen t in gait mechanics. Will order EMG/NCV to assess entrapment vs. irritation of sural nerve and future treatment options injection vs. decompress ion. Pain of russ int of ankle and/or foot [id number] M25.572 M25.571 Patient's condition, etiologies , options for care, treatment plan, and prognosis were discussed with in detail. Both conservati ve and surgical options for care were reviewed. Mendy lion I reviewed possible therapeuti c options including home physical therapy, oral and injectable medication s, therapist managed therapy, and changes in shoe gear. Discussed proper shoe gear and choices in detail and a handout demonstrat ing the icing and home physical therapy stretching techniques was given to the patient at this visit. Answered all of patient's questions. Discussed the benefits of prescripti on orthotics with the patient and explained that functional orthotics increase shock absorption and may prolong, or even potentiall y deter, the potential of requiring surgery for their condition. I recommende d more supportive shoes, shoes with more padding, shoes with a deeper toe box, and better fitting shoes. Handout given for over the counter insoles and shoe brand informatio n. The patient voiced understand ing of the condition, home care, expected healing, and was happy with this treatment plan and is to return to the office after EMG/NCV. [id number] Carisa Henning, CYN [address] [facility] Office [address] [facility] [place] [address] 12/04/2024 15:55:56 12/04/2024 16:43:10 Entrapment of sural nerve [id number] G57.30 [id number] Referral made to [facility] Sural neuropathy [id number] 00 G57.82 Patient's condition, etiologies , options for care, treatment plan, and prognosis were discussed with in detail. Both conservati ve and surgical options for care were reviewed. Reviewed that the sural nerve is for sensation and contribute s to maintainin g balance. The sural nerve is commonly irritated postoperat ively secondary to dressings and the braces compressin g and irritating the nerve. Explained in detail that with decrease in his postoperat jack swelling, continue physical therapy, mobilizati on of his scar tissue, and weaning out of the bracing will more than likely help with the nerve. Again reviewed in detail overloadin g of the extremitie s and compensati on secondary to surgical changes and pain. He continues to offload back-and-f orth to the lower extremitie s secondary to his gait changes and healing. Stressed importance of continued physical therapy for changes and improvemen t in gait mechanics. Discussed EMG/NCV and entrapment vs. irritation of sural nerve and future treatment options injection vs. decompress ion. He is to follow up after his treatment by neuro. Health Concerns Section Related Observation LastModified by Organization Detai ls LastModified Time None Recorded Concern Status LastModified by Organization Details LastModified Time None Recorded Advance Directives Directive Y: Payers Insurance Date Sequence Insurance Name Policy Number Policy Perez Covered Member ID Perez Member ID Guarantor Name 12/04/2024 1 [id number] Dontrell Vaughn [id number] Dontrell Vaughn Notes Date Note Type Note Provider Name and Address Organization Details Recorded Time 05/15/2024 text/html Mehdi returns to the office for follow-up of his bilateral foot pain, left calcaneal stress fracture, and right fifth metatarsal stress fracture. He relates that he has minimal to no pain with the right foot at this time but continues have aching and throbbing to his left heel especially with long periods of walking and standing. The previously noted calf pain in the left has greatly improved as has the numbness/paresthes ias to the posterior lateral calf and heel. Does relate he continues to have some mild anesthesia to the left lateral foot and heel but this is overall improving. Previous treatments include changes in shoe gear, rest, ice, massage, home PT, decrease in activities, and NSAID's. Outside reports reviewed: Office notes and historical medical records Carisa Henning, KEVIN [address] [facility] [address] [place] [address], [phone], [facility] [place], 08/07/2024 11:55:35 06/12/2024 text/html Mehdi returns to the office for follow-up of his bilateral foot pain, left calcaneal stress fracture, and right fifth metatarsal stress fracture. Again relates that he has almost no pain to the right foot except if he stands and walks for long periods of time or compensates for his left foot. He has been able to wean out of the CAM boot when he is at home at this time and has been going to physical therapy. Relates that the injection along the sural nerve helped for a few days but pain did return to the posterior lateral aspect of the heel. No longer has any pain that runs up along into the calf. Previous treatments include changes in shoe gear, rest, ice, massage, home PT, decrease in activities, and NSAID's. Outside reports reviewed: Office notes and historical medical records Carisa Henning, CYN [address] [facility],[address] [place] [address], [id number], [facility] [place], 08/07/2024 12:01:39 07/17/2024 text/html Mehdi returns to the office for follow-up of his bilateral foot pain, left calcaneal stress fracture, and right fifth metatarsal stress fracture. He has continued to go to physical therapy as directed and is no longer using the walking boot or ankle brace. Paresthesias along the sural nerve of the left lower extremity have improved no longer having tingling and burning more a feeling of dysesthesia or numb sensation. Previous treatments include changes in shoe gear, rest, ice, massage, home PT, decrease in activities, and NSAID's. Outside reports reviewed: Office notes and historical medical records Carisa Henning DPM [address] [facility],[address], [place], [phone], [facility] [place], 08/07/2024 12:14:49 08/14/2024 text/html Mehdi returns to the office for follow-up of his left leg and foot pain, left calcaneal stress fracture and sural neuritis. He is not going to PT at this time and is no longer using the walking boot or ankle brace. Paresthesias along the sural nerve of the left lower extremity have improved no longer having tingling and burning constantly, only with bumping the foot or landing on the foot, also more a feeling of dysesthesia or numb sensation. Previous treatments include changes in shoe gear, rest, ice, massage, home PT, decrease in activities, and NSAID's. Outside reports reviewed: Office notes and historical medical records Carisa Henning DPM [address] [facility],[address], [place], [phone], [facility] [place], 08/14/2024 23:30:16 12/04/2024 text/html Mehdi returns to the office for follow-up of his left leg and foot pain, left calcaneal stress fracture and sural neuritis. He is not going to PT at this time and is no longer using the walking boot or ankle brace. Paresthesias along the sural nerve of the left lower extremity have improved no longer having tingling and burning constantly, only with bumping the foot or landing on the foot, also more a feeling of dysesthesia or numb sensation. Previous treatments include changes in shoe gear, rest, ice, massage, home PT, decrease in activities, and NSAID's. Here to discuss EMG/NCV results and treatment options. Outside reports reviewed: Office notes and historical medical records Carisa Henning DPM [address] [facility],[address], [place], [phone], [facility] [place], 12/04/2024 17:10:36
== END 2025-03-03 12:36 | disposition home or self-care (01) ==
PROVIDERS: PCP Nurse Practitioner Family; Visit Provider Urology
DX: M61.451 Other calcification of muscle, right thigh (principal); N20.0 Calculus of kidney
CPT/HCPCS: 74018